=== PATIENT | female | born 1960 ===

== ENCOUNTER 2017-06-20 13:54 | Inpatient (IN) | payer OTHER ==
[2017-06-20] MEDS ORDERED: Sodium Chloride 0.9% 1,000 ML IV ONE ×3 (15:15→17:54)
--- NOTE | 2017-06-20 15:25 | RAD ---
PROCEDURE: CHEST RADIOGRAPH, 1 VIEW HISTORY: SOB COMPARISON: None FINDINGS: LUNGS: The lungs are well inflated and clear. PLEURA: No pneumothorax or pleural fluid seen. CARDIOVASCULAR: Normal. OSSEOUS STRUCTURES: No significant abnormalities. VISUALIZED UPPER ABDOMEN: Normal. OTHER FINDINGS: None. IMPRESSION: No active pulmonary disease.
[2017-06-20 16:30] LABS: VENOUS BLOOD GAS BASE EXCESS -13.9 mmol/L (0.0-2.0); VENOUS BLOOD GAS PCO2 28 mmHg (40-60); VENOUS BLOOD GAS PO2 25 mm/Hg (30-55); VENOUS BLOOD PH 7.24 (7.32-7.43)
[2017-06-20 16:40] LABS: BASO # 0.1 K/uL (0.0-0.2); BASO % 0.6 % (0.0-2.0); EOS % 0.1 % (0.0-4.0); LYMPH # 0.6 K/uL (1.0-4.3); MEAN CELL VOLUME 92.1 fL (81.0-99.0); MEAN CORPUSCULAR HEMOGLOBIN 30.5 pg (27.0-31.0); MEAN CORPUSCULAR HGB CONC 33.1 g/dL (33.0-37.0); MEAN PLATELET VOLUME 9.1 fL (7.2-11.7); MONO # 1.1 K/uL (0.0-0.8); MONO % 5.8 % (0.0-10.0); NEUT # 17.1 K/uL (1.8-7.0); NEUT % 90.5 % (50.0-75.0); PLATELET COUNT 413 K/uL (130-400); RED CELL DISTRIBUTION WIDTH 13.7 % (11.5-14.5); WHITE BLOOD COUNT 18.9 K/uL (4.8-10.8)
[2017-06-20] MEDS ORDERED: Sodium Chloride 0.9% 1,000 ML ONE (16:49)
[2017-06-20 17:02] LABS: ALB/GLOB RATIO 0.9 (1.0-2.1)
[2017-06-20 17:03] LABS: CALCIUM 9.7 mg/dl (8.6-10.4)
[2017-06-20 17:15] LABS: BANDS 7 % (0-2); LYMPHOCYTE 3 % (20-40); MONOCYTE 1 % (0-10); NEUTROPHIL 89 % (50-75); PLATELET ESTIMATE NORMAL (NORMAL); TOTAL CELLS COUNTED 100
[2017-06-20] MEDS ORDERED: Insulin Human Regular 100 UNIT in Sodium Chloride 0.9% 99 ML IV SCH ×2 (17:15→23:45)
--- NOTE | 2017-06-20 17:18 | C.PDOC ---
History Of Present Illness 57-year-old female, presents to the emergency department with complaints of vomiting for four days. Patient notes a history of diabetes and HTN. Patient's PMD, Dr. Angel instructed her to seek evaluation in the emergency department. She denies any diarrhea, fever, or other complaints at this time. Time Seen by Provider: 06/20/17 15:04 Chief Complaint (Nursing): Abdominal Pain History Per: Patient History/Exam Limitations: no limitations Onset/Duration Of Symptoms: Days (4 days beginning Thursday) Current Symptoms Are (Timing): Still Present Radiation Of Pain To:: None Associated Symptoms: Vomiting. denies: Fever, Chills, Diarrhea Recent travel outside of the [place]: No Additional History Per: Prior Records Abnormal Vaginal Bleeding: No Past Medical History Reviewed: Historical Data, Nursing Documentation, Vital Signs Vital Signs: Last Vital Signs Temp 98.5 F 06/20/17 18:24 Pulse 99 H 06/20/17 18:24 Resp 18 06/20/17 18:24 BP 153/86 H 06/20/17 18:24 Pulse Ox 98 06/20/17 18:59 - Medical History PMH: HTN Family History: States: Unknown Family Hx - Social History Hx Alcohol Use: No Hx Substance Use: No - Immunization History Hx Tetanus Toxoid Vaccination: No Hx Influenza Vaccination: No Hx Pneumococcal Vaccination: No Review Of Systems Constitutional: Negative for: Fever, Chills Cardiovascular: Negative for: Chest Pain Respiratory: Negative for: Shortness of Breath Gastrointestinal: Positive for: Vomiting. Negative for: Abdominal Pain, Diarrhea Physical Exam - Physical Exam Appears: Well, Non-toxic, In Acute Distress (patient ), Other (Patient has fruity odor to breath ) Skin: Warm, Dry, Pale Head: Atraumatic Eye(s): bilateral: Normal Inspection, PERRL, EOMI Oral Mucosa: Dry Neck: Supple Chest: Symmetrical, No Deformity Cardiovascular: Rhythm Regular Respiratory: Normal Breath Sounds, No Rhonchi, No Wheezing Gastrointestinal/Abdominal: Soft, No Tenderness, No Distention, No Guarding, No Rebound Extremity: Normal ROM, No Tenderness Neurological/Psych: Oriented x3, Normal Speech, Normal Cognition, Normal Cranial Nerves, Normal Motor, Normal Sensation Gait: Unable To Assess ED Course And Treatment - Laboratory Results Result Diagrams: 06/20/17 16:23 07/29/17 16:23 Lab Interpretation: Abnormal ECG: Interpreted By Me ECG Rhythm: Sinus Rhythm ECG Interpretation: Normal Rate From EC O2 Sat by Pulse Oximetry: 98 (room air ) Pulse Ox Interpretation: Normal - Radiology CXR: Interpreted by Me CXR Interpretation: Yes: No Acute Disease Progress Note: Patient's PMD Dr. Angel would like to admit to cost clerk. Chucking Machine Set Up Operator wants to admit to Dr. Lito Green. Dr. Lito Green agrees to plan and admission to his sevices. Blood work and EKG ordered. Patient is in DKA. Two liters of saline and zofran given. Insulin drip started in emergency department. Reassessment Condition: Improved - Physician Consult Information Time Consulting Physician Contacted: 17:30 Physician Contacted: Noam Green Outcome Of Conversation: admit to ICU Critical Care Time - Critical Care Note Total Time (in mins): 30 Documented critical care: time excludes all time spent performing seperately billable procedures. Medical Decision Making Medical Decision Making: Case discussed with Dr Sadler who request admission to Dr Kristan Vaca Case discussed with DR Vaca who agrees to ICU admission and request admission to Dr Chanel Green On re-evaluation lungs clear Disposition Discussed With Dr.: Noam Green Doctor Will See Patient In The: Hospital - Disposition Disposition: HOSPITALIZED Disposition Time: 18:00 Condition: GUARDED - POA Present On Arrival: None - Clinical Impression Clinical Impression: Vomiting, DKA (diabetic ketoacidoses) - Scribe Statement The provider has reviewed the documentation as recorded by the Scribe Jacqueline Phelps All medical record entries made by the Scribe were at my direction and personally dictated by me. I have reviewed the chart and agree that the record accurately reflects my personal performance of the history, physical exam, medical decision making, and the department course for this patient. I have also personally directed, reviewed, and agree with the discharge instructions and disposition. Decision To Admit - Pt Status Changed To: Hospital Disposition Of: [facility] Extended Stay Bed - InPatient: Physician Admission Certification:: DKA - . Bed Request Type: ICU Admitting Physician: Noam Green Patient Diagnosis: Vomiting, DKA (diabetic ketoacidoses)
--- NOTE | 2017-06-20 18:14 | CP.PCM.CON ---
History of Present Illness - History of Present Illness History of Present Illness: ICU evaluation for DKA 57-year-old female with hypertension and diabetes presented to emergency room with abdominal pain and vomiting for the past few days. Denies diarrhea, denies shortness of breath, denies fevers chills, denies chest pain. In the emergency room patient found to havE elevated glucose with high anion gap metabolic acidosis. Status post fluid resuscitation and started on insulin drip Review of Systems - Review of Systems All systems: reviewed and no additional remarkable complaints except (Vomiting and abdominal pain) Past Patient History - Past Social History Smoking Status: Never Smoked - CARDIAC Hx Hypertension: Yes - ENDOCRINE/METABOLIC Hx Endocrine Disorders: Yes Hx Diabetes Mellitus Type 2: Yes - PSYCHIATRIC Hx Substance Use: No - SURGICAL HISTORY Hx Surgeries: Yes Other/Comment: fibroid surgery Meds Allergies/Adverse Reactions: Allergies Allergy/AdvReac Type Severity Reaction Status Date / Time No Known Allergies Allergy Verified 06/20/17 14:51 - Medications Medications: Current Medications Enoxaparin Sodium (Lovenox) 40 mg SC DAILY [facility] Insulin Human Regular 100 unit (/ Sodium Chloride) 100 mls @ 5 mls/hr IV .Q20H [facility] PRN Reason: 5 UNIT/HR Sodium Chloride (Sodium Chloride 0.9%) 1,000 mls @ 250 mls/hr IV .Q4H ONE Stop: 06/20/17 21:53 Pantoprazole Sodium (Protonix Inj) 40 mg IVP DAILY [facility] Physical Exam - Head Exam Head Exam: ATRAUMATIC, NORMOCEPHALIC - Eye Exam Eye Exam: Normal appearance - ENT Exam ENT Exam: Mucous Membranes Dry - Neck Exam Neck exam: Positive for: Normal Inspection - Respiratory Exam Respiratory Exam: Clear to Auscultation Bilateral - Cardiovascular Exam Cardiovascular Exam: REGULAR RHYTHM - GI/Abdominal Exam GI & Abdominal Exam: Normal Bowel Sounds, Soft - Extremities Exam Extremities exam: Positive for: normal inspection Results - Vital Signs Recent Vital Signs: Last Vital Signs Temp 98.6 F 06/20/17 14:50 Pulse 102 H 06/20/17 14:50 Resp 16 06/20/17 14:50 BP 158/91 H 06/20/17 14:50 Pulse Ox 98 06/20/17 17:48 - Labs Result Diagrams: 06/20/17 16:23 06/20/17 16:23 Assessment & Plan (1) DKA (diabetic ketoacidoses) Status: Acute Comment: Fluid resuscitation and insulin drip. Monitor CLOSELY blood glucose and BMP. Monitor anion gap. Urine culture and sensitivity (2) Vomiting Status: Acute
[2017-06-20] MEDS ORDERED: Dextrose 5%/0.9% NS 1,000 ML IV ONE (19:54)
[2017-06-20 20:17] LABS: GFR AFRICAN-AMERICAN > 60; GFR NON-AFRICAN AMERICAN > 60
[2017-06-20 20:18] LABS: BLOOD UREA NITROGEN 31 mg/dL (7-17)
[2017-06-21 01:54] LABS: BLOOD UREA NITROGEN 24 mg/dL (7-17); GFR AFRICAN-AMERICAN > 60; GFR NON-AFRICAN AMERICAN > 60
[2017-06-21 01:55] LABS: CALCIUM 9.1 mg/dl (8.6-10.4); MAGNESIUM 1.7 mg/dL (1.6-2.3)
[2017-06-21] MEDS ORDERED: Dextrose 5%/0.9% NS 1,000 ML IV ONE (02:45)
[2017-06-21 07:05] LABS: BASO % 0.2 % (0.0-2.0); EOS % 0.1 % (0.0-4.0); HEMOGLOBIN 9.8 g/dL (11.0-16.0); LYMPH # 0.8 K/uL (1.0-4.3); LYMPH % 4.4 % (20.0-40.0); MEAN CORPUSCULAR HEMOGLOBIN 30.3 pg (27.0-31.0); MEAN CORPUSCULAR HGB CONC 33.8 g/dL (33.0-37.0); MEAN PLATELET VOLUME 8.8 fL (7.2-11.7); MONO # 1.3 K/uL (0.0-0.8); MONO % 7.1 % (0.0-10.0); NEUT # 15.8 K/uL (1.8-7.0); NEUT % 88.2 % (50.0-75.0); PLATELET COUNT 327 K/uL (130-400); RBC 3.24 Mil/uL (3.80-5.20); RED CELL DISTRIBUTION WIDTH 13.5 % (11.5-14.5); WHITE BLOOD COUNT 17.9 K/uL (4.8-10.8)
[2017-06-21 07:07] LABS: GFR AFRICAN-AMERICAN > 60; GFR NON-AFRICAN AMERICAN > 60; MEAN CELL VOLUME 89.7 fL (81.0-99.0)
[2017-06-21 07:08] LABS: BLOOD UREA NITROGEN 21 mg/dL (7-17); CALCIUM 8.9 mg/dl (8.6-10.4); MAGNESIUM 1.7 mg/dL (1.6-2.3)
[2017-06-21 07:16] LABS: SQUAMOUS EPITHIAL < 1 /hpf (0-5); URINE BACTERIA RARE (<OCC); URINE BILIRUBIN NEGATIVE (NEGATIVE); URINE BLOOD NEGATIVE (NEGATIVE); URINE CLARITY Hazy (Clear); URINE COLOR Yellow (YELLOW); URINE GLUCOSE (UA) 3+ mg/dL (Normal); URINE LEUKOCYTE ESTERASE 1+ Leu/uL (Negative); URINE NITRATE NEGATIVE (NEGATIVE); URINE PROTEIN 2+ mg/dL (NEGATIVE); URINE UROBILINOGEN NORMAL mg/dL (0.2-1.0)
[2017-06-21] MEDS: Potassium Chloride 20 mEq ER Tab PO ONE ×2 (08:06→08:44)
[2017-06-21 08:37] LABS: BANDS 12 % (0-2); LYMPHOCYTE 4 % (20-40); MONOCYTE 9 % (0-10); NEUTROPHIL 75 % (50-75); PLATELET ESTIMATE NORMAL (NORMAL); TOTAL CELLS COUNTED 100
[2017-06-21 08:38] LABS: ANISOCYTOSIS SLIGHT; HYPOCHROMIC SLIGHT; LARGE PLATELETS PRESENT; POLYCHROMIC SLIGHT
[2017-06-21] MEDS: Enoxaparin 40 mg Syringe SC SCH (09:07)
--- NOTE | 2017-06-21 10:57 | CP.CCUPN ---
CCU Subjective - Physician Review Events Since Last Encounter (Free Text): 06/21/17 10:54 Patient seen and examined in the intensive care unit. Case discussed with house staff in the morning. Still complaining of nausea and vomiting On insulin drip with normal anion gap Denies any other complaints CCU Objective - Vital Signs / Intake & Output Vital Signs (Last 4 hours): Vital Signs Temp Pulse Resp BP Pulse Ox 06/21/17 09:33 90 14 177/99 H 97 06/21/17 09:30 95 H 14 96 06/21/17 09:20 98 H 15 93 L 06/21/17 09:10 92 H 14 96 06/21/17 09:00 98 H 11 L 95 06/21/17 08:50 95 H 15 96 06/21/17 08:40 102 H 14 96 06/21/17 08:33 94 H 12 176/98 H 95 06/21/17 08:30 97 H 22 96 06/21/17 08:20 96 H 19 94 L 06/21/17 08:10 96 H 14 96 06/21/17 08:00 98.1 F 99 H 16 95 06/21/17 07:50 89 20 90 L 06/21/17 07:40 87 27 H 88 L 06/21/17 07:33 86 22 138/85 90 L 06/21/17 07:30 87 25 H 89 L 06/21/17 07:20 89 26 H 90 L 06/21/17 07:10 93 H 26 H 91 L 06/21/17 07:09 94 H 14 169/101 H 89 L 06/21/17 07:00 92 H 17 95 Intake and Output (Last 8hrs): Intake & Output 06/20/17 06/21/17 06/21/17 22:59 06:59 14:59 Intake Total 465 1225 476 Output Total 1150 1500 650 Balance -028 -729 -174 Weight 101 lb 6.602 oz Intake: Intake, IV Amount 465 1225 306 Right Antecubital 450 1200 300 Right Distal Port 15 25 6 Oral 0 0 170 Output: Urine 1150 1500 650 Urine, Voided 1150 1500 650 Stool 0 0 0 Other: Voiding Method Bedpan # Voids Urine, Voided 1 - Physical Exam Head: Positive for: Atraumatic, Normocephalic Pupils: Positive for: PERRL Extroacular Muscles: Positive for: EOMI Conjunctiva: Positive for: Normal Mouth: Positive for: Moist Mucous Membranes Neck: Positive for: Normal Range of Motion Respiratory/Chest: Positive for: Clear to Auscultation Cardiovascular: Positive for: Regular Rate and Rhythm Abdomen: Positive for: Normal Bowel Sounds Upper Extremity: Positive for: Normal Inspection Lower Extremity: Positive for: Normal Inspection Skin: Positive for: Warm Psychiatric: Positive for: Alert, Oriented x 3 - Medications Active Medications: Active Medications Generic Name Dose Route Start Last Admin Trade Name Freq PRN Reason Stop Dose Admin Enoxaparin Sodium 40 mg 06/21/17 10:00 06/21/17 09:07 Lovenox SC 40 mg DAILY JUAN MANUEL Administration Ciprofloxacin 400 mg in 200 mls @ 133 mls/hr 06/21/17 10:00 Cipro 400mg/200ml Dsw IVPB Q12H JUAN MANUEL Insulin Human Regular 0 unit 06/21/17 11:30 Novolin R SC ACHS JUAN MANUEL Protocol Ondansetron HCl 4 mg 06/20/17 21:34 06/21/17 08:00 Zofran Inj IVP 4 mg Q4H PRN Administration Nausea/Vomiting Pantoprazole Sodium 40 mg 06/20/17 18:00 06/21/17 09:06 Protonix Inj IVP 40 mg DAILY JUAN MANUEL Administration - Patient Studies Lab Studies: Lab Studies 06/21/17 06/21/17 06/21/17 Range/Units 07:51 07:09 06:48 WBC 17.9 H (4.8-10.8) K/uL RBC 3.24 L (3.80-5.20) Mil/uL Hgb 9.8 L (11.0-16.0) g/dL Hct 29.0 L (34.0-47.0) % MCV 89.7 D (81.0-99.0) fL MCH 30.3 (27.0-31.0) pg MCHC 33.8 (33.0-37.0) g/dL RDW 13.5 (11.5-14.5) % Plt Count 327 (130-400) K/uL MPV 8.8 (7.2-11.7) fL Neut % (Auto) 88.2 H (50.0-75.0) % Lymph % (Auto) 4.4 L (20.0-40.0) % [place] % (Auto) 7.1 (0.0-10.0) % Eos % (Auto) 0.1 (0.0-4.0) % Baso % (Auto) 0.2 (0.0-2.0) % Neut # 15.8 H (1.8-7.0) K/uL Lymph # 0.8 L (1.0-4.3) K/uL [place] # 1.3 H (0.0-0.8) K/uL Eos # 0.0 (0.0-0.7) K/uL Baso # 0.0 (0.0-0.2) K/uL Neutrophils % (Manual) 75 (50-75) % Band Neutrophils % 12 H* (0-2) % Lymphocytes % (Manual) 4 L (20-40) % Monocytes % (Manual) 9 (0-10) % Platelet Estimate Normal (NORMAL) Large Platelets Present Polychromasia Slight Hypochromasia (manual) Slight Anisocytosis (manual) Slight Sodium (132-148) mmol/L Potassium (3.6-5.2) mmol/L Chloride (98-107) mmol/L Carbon Dioxide (22-30) mmol/L Anion Gap (10-20) BUN (7-17) mg/dL Creatinine (0.7-1.2) MG/DL Est GFR ( Amer) Est GFR (Non-Af Amer) POC Glucose (mg/dL) 211 H 201 H (65-110) mg/dL Random Glucose (65-105) mg/dL Calcium (8.6-10.4) mg/dl Phosphorus (2.5-4.5) mg/dL Magnesium (1.6-2.3) mg/dL Urine Color (YELLOW) Urine Clarity (Clear) Urine pH (5.0-8.0) Ur Specific [place] (1.003-1.030) Urine Protein (NEGATIVE) mg/dL Urine Glucose (UA) (Normal) mg/dL Urine Ketones (NEGATIVE) mg/dL Urine Blood (NEGATIVE) Urine Nitrate (NEGATIVE) Urine Bilirubin (NEGATIVE) Urine Urobilinogen (0.2-1.0) mg/dL Ur Leukocyte Esterase (Negative) Asaf/uL Urine WBC (Auto) (0-5) /hpf Urine RBC (Auto) (0-3) /hpf Ur Squamous Epith Cells (0-5) /hpf Urine Bacteria (<OCC) 06/21/17 06/21/17 06/21/17 Range/Units 06:48 06:48 06:14 WBC (4.8-10.8) K/uL RBC (3.80-5.20) Mil/uL Hgb (11.0-16.0) g/dL Hct (34.0-47.0) % MCV (81.0-99.0) fL MCH (27.0-31.0) pg MCHC (33.0-37.0) g/dL RDW (11.5-14.5) % Plt Count (130-400) K/uL MPV (7.2-11.7) fL Neut % (Auto) (50.0-75.0) % Lymph % (Auto) (20.0-40.0) % [place] % (Auto) (0.0-10.0) % Eos % (Auto) (0.0-4.0) % Baso % (Auto) (0.0-2.0) % Neut # (1.8-7.0) K/uL Lymph # (1.0-4.3) K/uL [place] # (0.0-0.8) K/uL Eos # (0.0-0.7) K/uL Baso # (0.0-0.2) K/uL Neutrophils % (Manual) (50-75) % Band Neutrophils % (0-2) % Lymphocytes % (Manual) (20-40) % Monocytes % (Manual) (0-10) % Platelet Estimate (NORMAL) Large Platelets Polychromasia Hypochromasia (manual) Anisocytosis (manual) Sodium 144 (132-148) mmol/L Potassium 3.0 L (3.6-5.2) mmol/L Chloride 108 H (98-107) mmol/L Carbon Dioxide 23 (22-30) mmol/L Anion Gap 16 (10-20) BUN 21 H (7-17) mg/dL Creatinine 0.9 (0.7-1.2) MG/DL Est GFR ( Amer) > 60 Est GFR (Non-Af Amer) > 60 POC Glucose (mg/dL) 217 H (65-110) mg/dL Random Glucose 229 H (65-105) mg/dL Calcium 8.9 (8.6-10.4) mg/dl Phosphorus 1.8 L (2.5-4.5) mg/dL Magnesium 1.7 (1.6-2.3) mg/dL Urine Color Yellow (YELLOW) Urine Clarity Hazy (Clear) Urine pH 5.0 (5.0-8.0) Ur Specific [place] 1.010 (1.003-1.030) Urine Protein 2+ H (NEGATIVE) mg/dL Urine Glucose (UA) 3+ H (Normal) mg/dL Urine Ketones Trace (NEGATIVE) mg/dL Urine Blood Negative (NEGATIVE) Urine Nitrate Negative (NEGATIVE) Urine Bilirubin Negative (NEGATIVE) Urine Urobilinogen Normal (0.2-1.0) mg/dL Ur Leukocyte Esterase 1+ H (Negative) Asaf/uL Urine WBC (Auto) 43 H (0-5) /hpf Urine RBC (Auto) 1 (0-3) /hpf Ur Squamous Epith Cells < 1 (0-5) /hpf Urine Bacteria Rare (<OCC) 06/21/17 06/21/17 06/21/17 Range/Units 05:14 04:17 03:15 WBC (4.8-10.8) K/uL RBC (3.80-5.20) Mil/uL Hgb (11.0-16.0) g/dL Hct (34.0-47.0) % MCV (81.0-99.0) fL MCH (27.0-31.0) pg MCHC (33.0-37.0) g/dL RDW (11.5-14.5) % Plt Count (130-400) K/uL MPV (7.2-11.7) fL Neut % (Auto) (50.0-75.0) % Lymph % (Auto) (20.0-40.0) % [place] % (Auto) (0.0-10.0) % Eos % (Auto) (0.0-4.0) % Baso % (Auto) (0.0-2.0) % Neut # (1.8-7.0) K/uL Lymph # (1.0-4.3) K/uL [place] # (0.0-0.8) K/uL Eos # (0.0-0.7) K/uL Baso # (0.0-0.2) K/uL Neutrophils % (Manual) (50-75) % Band Neutrophils % (0-2) % Lymphocytes % (Manual) (20-40) % Monocytes % (Manual) (0-10) % Platelet Estimate (NORMAL) Large Platelets Polychromasia Hypochromasia (manual) Anisocytosis (manual) Sodium (132-148) mmol/L Potassium (3.6-5.2) mmol/L Chloride (98-107) mmol/L Carbon Dioxide (22-30) mmol/L Anion Gap (10-20) BUN (7-17) mg/dL Creatinine (0.7-1.2) MG/DL Est GFR ( Amer) Est GFR (Non-Af Amer) POC Glucose (mg/dL) 258 H 248 H 221 H (65-110) mg/dL Random Glucose (65-105) mg/dL Calcium (8.6-10.4) mg/dl Phosphorus (2.5-4.5) mg/dL Magnesium (1.6-2.3) mg/dL Urine Color (YELLOW) Urine Clarity (Clear) Urine pH (5.0-8.0) Ur Specific [place] (1.003-1.030) Urine Protein (NEGATIVE) mg/dL Urine Glucose (UA) (Normal) mg/dL Urine Ketones (NEGATIVE) mg/dL Urine Blood (NEGATIVE) Urine Nitrate (NEGATIVE) Urine Bilirubin (NEGATIVE) Urine Urobilinogen (0.2-1.0) mg/dL Ur Leukocyte Esterase (Negative) Asaf/uL Urine WBC (Auto) (0-5) /hpf Urine RBC (Auto) (0-3) /hpf Ur Squamous Epith Cells (0-5) /hpf Urine Bacteria (<OCC) 06/21/17 06/21/17 06/21/17 Range/Units 01:59 01:30 01:04 WBC (4.8-10.8) K/uL RBC (3.80-5.20) Mil/uL Hgb (11.0-16.0) g/dL Hct (34.0-47.0) % MCV (81.0-99.0) fL MCH (27.0-31.0) pg MCHC (33.0-37.0) g/dL RDW (11.5-14.5) % Plt Count (130-400) K/uL MPV (7.2-11.7) fL Neut % (Auto) (50.0-75.0) % Lymph % (Auto) (20.0-40.0) % [place] % (Auto) (0.0-10.0) % Eos % (Auto) (0.0-4.0) % Baso % (Auto) (0.0-2.0) % Neut # (1.8-7.0) K/uL Lymph # (1.0-4.3) K/uL [place] # (0.0-0.8) K/uL Eos # (0.0-0.7) K/uL Baso # (0.0-0.2) K/uL Neutrophils % (Manual) (50-75) % Band Neutrophils % (0-2) % Lymphocytes % (Manual) (20-40) % Monocytes % (Manual) (0-10) % Platelet Estimate (NORMAL) Large Platelets Polychromasia Hypochromasia (manual) Anisocytosis (manual) Sodium 145 (132-148) mmol/L Potassium 3.4 L (3.6-5.2) mmol/L Chloride 108 H (98-107) mmol/L Carbon Dioxide 22 (22-30) mmol/L Anion Gap 18 (10-20) BUN 24 H (7-17) mg/dL Creatinine 0.9 (0.7-1.2) MG/DL Est GFR ( Amer) > 60 Est GFR (Non-Af Amer) > 60 POC Glucose (mg/dL) 198 H 208 H (65-110) mg/dL Random Glucose 205 H (65-105) mg/dL Calcium 9.1 (8.6-10.4) mg/dl Phosphorus 1.4 L (2.5-4.5) mg/dL Magnesium 1.7 (1.6-2.3) mg/dL Urine Color (YELLOW) Urine Clarity (Clear) Urine pH (5.0-8.0) Ur Specific [place] (1.003-1.030) Urine Protein (NEGATIVE) mg/dL Urine Glucose (UA) (Normal) mg/dL Urine Ketones (NEGATIVE) mg/dL Urine Blood (NEGATIVE) Urine Nitrate (NEGATIVE) Urine Bilirubin (NEGATIVE) Urine Urobilinogen (0.2-1.0) mg/dL Ur Leukocyte Esterase (Negative) Asaf/uL Urine WBC (Auto) (0-5) /hpf Urine RBC (Auto) (0-3) /hpf Ur Squamous Epith Cells (0-5) /hpf Urine Bacteria (<OCC) 06/21/17 06/20/17 06/20/17 Range/Units 00:08 23:27 22:16 WBC (4.8-10.8) K/uL RBC (3.80-5.20) Mil/uL Hgb (11.0-16.0) g/dL Hct (34.0-47.0) % MCV (81.0-99.0) fL MCH (27.0-31.0) pg MCHC (33.0-37.0) g/dL RDW (11.5-14.5) % Plt Count (130-400) K/uL MPV (7.2-11.7) fL Neut % (Auto) (50.0-75.0) % Lymph % (Auto) (20.0-40.0) % [place] % (Auto) (0.0-10.0) % Eos % (Auto) (0.0-4.0) % Baso % (Auto) (0.0-2.0) % Neut # (1.8-7.0) K/uL Lymph # (1.0-4.3) K/uL [place] # (0.0-0.8) K/uL Eos # (0.0-0.7) K/uL Baso # (0.0-0.2) K/uL Neutrophils % (Manual) (50-75) % Band Neutrophils % (0-2) % Lymphocytes % (Manual) (20-40) % Monocytes % (Manual) (0-10) % Platelet Estimate (NORMAL) Large Platelets Polychromasia Hypochromasia (manual) Anisocytosis (manual) Sodium (132-148) mmol/L Potassium (3.6-5.2) mmol/L Chloride (98-107) mmol/L Carbon Dioxide (22-30) mmol/L Anion Gap (10-20) BUN (7-17) mg/dL Creatinine (0.7-1.2) MG/DL Est GFR ( Amer) Est GFR (Non-Af Amer) POC Glucose (mg/dL) 198 H 215 H 186 H (65-110) mg/dL Random Glucose (65-105) mg/dL Calcium (8.6-10.4) mg/dl Phosphorus (2.5-4.5) mg/dL Magnesium (1.6-2.3) mg/dL Urine Color (YELLOW) Urine Clarity (Clear) Urine pH (5.0-8.0) Ur Specific [place] (1.003-1.030) Urine Protein (NEGATIVE) mg/dL Urine Glucose (UA) (Normal) mg/dL Urine Ketones (NEGATIVE) mg/dL Urine Blood (NEGATIVE) Urine Nitrate (NEGATIVE) Urine Bilirubin (NEGATIVE) Urine Urobilinogen (0.2-1.0) mg/dL Ur Leukocyte Esterase (Negative) Asaf/uL Urine WBC (Auto) (0-5) /hpf Urine RBC (Auto) (0-3) /hpf Ur Squamous Epith Cells (0-5) /hpf Urine Bacteria (<OCC) 06/20/17 06/20/17 06/20/17 Range/Units 20:59 20:04 19:52 WBC (4.8-10.8) K/uL RBC (3.80-5.20) Mil/uL Hgb (11.0-16.0) g/dL Hct (34.0-47.0) % MCV (81.0-99.0) fL MCH (27.0-31.0) pg MCHC (33.0-37.0) g/dL RDW (11.5-14.5) % Plt Count (130-400) K/uL MPV (7.2-11.7) fL Neut % (Auto) (50.0-75.0) % Lymph % (Auto) (20.0-40.0) % [place] % (Auto) (0.0-10.0) % Eos % (Auto) (0.0-4.0) % Baso % (Auto) (0.0-2.0) % Neut # (1.8-7.0) K/uL Lymph # (1.0-4.3) K/uL [place] # (0.0-0.8) K/uL Eos # (0.0-0.7) K/uL Baso # (0.0-0.2) K/uL Neutrophils % (Manual) (50-75) % Band Neutrophils % (0-2) % Lymphocytes % (Manual) (20-40) % Monocytes % (Manual) (0-10) % Platelet Estimate (NORMAL) Large Platelets Polychromasia Hypochromasia (manual) Anisocytosis (manual) Sodium 141 (132-148) mmol/L Potassium 4.3 (3.6-5.2) mmol/L Chloride 104 (98-107) mmol/L Carbon Dioxide 13 L (22-30) mmol/L Anion Gap 28 H (10-20) BUN 31 H (7-17) mg/dL Creatinine 0.9 (0.7-1.2) MG/DL Est GFR ( Amer) > 60 Est GFR (Non-Af Amer) > 60 POC Glucose (mg/dL) 220 H 274 H (65-110) mg/dL Random Glucose 299 H (65-105) mg/dL Calcium 9.0 (8.6-10.4) mg/dl Phosphorus (2.5-4.5) mg/dL Magnesium (1.6-2.3) mg/dL Urine Color (YELLOW) Urine Clarity (Clear) Urine pH (5.0-8.0) Ur Specific [place] (1.003-1.030) Urine Protein (NEGATIVE) mg/dL Urine Glucose (UA) (Normal) mg/dL Urine Ketones (NEGATIVE) mg/dL Urine Blood (NEGATIVE) Urine Nitrate (NEGATIVE) Urine Bilirubin (NEGATIVE) Urine Urobilinogen (0.2-1.0) mg/dL Ur Leukocyte Esterase (Negative) Asaf/uL Urine WBC (Auto) (0-5) /hpf Urine RBC (Auto) (0-3) /hpf Ur Squamous Epith Cells (0-5) /hpf Urine Bacteria (<OCC) 06/20/17 Range/Units 19:06 WBC (4.8-10.8) K/uL RBC (3.80-5.20) Mil/uL Hgb (11.0-16.0) g/dL Hct (34.0-47.0) % MCV (81.0-99.0) fL MCH (27.0-31.0) pg MCHC (33.0-37.0) g/dL RDW (11.5-14.5) % Plt Count (130-400) K/uL MPV (7.2-11.7) fL Neut % (Auto) (50.0-75.0) % Lymph % (Auto) (20.0-40.0) % [place] % (Auto) (0.0-10.0) % Eos % (Auto) (0.0-4.0) % Baso % (Auto) (0.0-2.0) % Neut # (1.8-7.0) K/uL Lymph # (1.0-4.3) K/uL [place] # (0.0-0.8) K/uL Eos # (0.0-0.7) K/uL Baso # (0.0-0.2) K/uL Neutrophils % (Manual) (50-75) % Band Neutrophils % (0-2) % Lymphocytes % (Manual) (20-40) % Monocytes % (Manual) (0-10) % Platelet Estimate (NORMAL) Large Platelets Polychromasia Hypochromasia (manual) Anisocytosis (manual) Sodium (132-148) mmol/L Potassium (3.6-5.2) mmol/L Chloride (98-107) mmol/L Carbon Dioxide (22-30) mmol/L Anion Gap (10-20) BUN (7-17) mg/dL Creatinine (0.7-1.2) MG/DL Est GFR ( Amer) Est GFR (Non-Af Amer) POC Glucose (mg/dL) 253 H (65-110) mg/dL Random Glucose (65-105) mg/dL Calcium (8.6-10.4) mg/dl Phosphorus (2.5-4.5) mg/dL Magnesium (1.6-2.3) mg/dL Urine Color (YELLOW) Urine Clarity (Clear) Urine pH (5.0-8.0) Ur Specific [place] (1.003-1.030) Urine Protein (NEGATIVE) mg/dL Urine Glucose (UA) (Normal) mg/dL Urine Ketones (NEGATIVE) mg/dL Urine Blood (NEGATIVE) Urine Nitrate (NEGATIVE) Urine Bilirubin (NEGATIVE) Urine Urobilinogen (0.2-1.0) mg/dL Ur Leukocyte Esterase (Negative) Asaf/uL Urine WBC (Auto) (0-5) /hpf Urine RBC (Auto) (0-3) /hpf Ur Squamous Epith Cells (0-5) /hpf Urine Bacteria (<OCC) Laboratory Results - last 24 hr 06/20/17 06/20/17 06/20/17 19:06 19:52 20:04 WBC RBC Hgb Hct MCV MCH MCHC RDW Plt Count MPV Neut % (Auto) Lymph % (Auto) [place] % (Auto) Eos % (Auto) Baso % (Auto) Neut # Lymph # [place] # Eos # Baso # Neutrophils % (Manual) Band Neutrophils % Lymphocytes % (Manual) Monocytes % (Manual) Platelet Estimate Large Platelets Polychromasia Hypochromasia (manual) Anisocytosis (manual) Sodium 141 Potassium 4.3 Chloride 104 Carbon Dioxide 13 L Anion Gap 28 H BUN 31 H Creatinine 0.9 Est GFR ( Amer) > 60 Est GFR (Non-Af Amer) > 60 POC Glucose (mg/dL) 253 H 274 H Random Glucose 299 H Calcium 9.0 Phosphorus Magnesium Urine Color Urine Clarity Urine pH Ur Specific [place] Urine Protein Urine Glucose (UA) Urine Ketones Urine Blood Urine Nitrate Urine Bilirubin Urine Urobilinogen Ur Leukocyte Esterase Urine WBC (Auto) Urine RBC (Auto) Ur Squamous Epith Cells Urine Bacteria 06/20/17 06/20/17 06/20/17 20:59 22:16 23:27 WBC RBC Hgb Hct MCV MCH MCHC RDW Plt Count MPV Neut % (Auto) Lymph % (Auto) [place] % (Auto) Eos % (Auto) Baso % (Auto) Neut # Lymph # [place] # Eos # Baso # Neutrophils % (Manual) Band Neutrophils % Lymphocytes % (Manual) Monocytes % (Manual) Platelet Estimate Large Platelets Polychromasia Hypochromasia (manual) Anisocytosis (manual) Sodium Potassium Chloride Carbon Dioxide Anion Gap BUN Creatinine Est GFR ( Amer) Est GFR (Non-Af Amer) POC Glucose (mg/dL) 220 H 186 H 215 H Random Glucose Calcium Phosphorus Magnesium Urine Color Urine Clarity Urine pH Ur Specific [place] Urine Protein Urine Glucose (UA) Urine Ketones Urine Blood Urine Nitrate Urine Bilirubin Urine Urobilinogen Ur Leukocyte Esterase Urine WBC (Auto) Urine RBC (Auto) Ur Squamous Epith Cells Urine Bacteria 06/21/17 06/21/17 06/21/17 00:08 01:04 01:30 WBC RBC Hgb Hct MCV MCH MCHC RDW Plt Count MPV Neut % (Auto) Lymph % (Auto) [place] % (Auto) Eos % (Auto) Baso % (Auto) Neut # Lymph # [place] # Eos # Baso # Neutrophils % (Manual) Band Neutrophils % Lymphocytes % (Manual) Monocytes % (Manual) Platelet Estimate Large Platelets Polychromasia Hypochromasia (manual) Anisocytosis (manual) Sodium 145 Potassium 3.4 L Chloride 108 H Carbon Dioxide 22 Anion Gap 18 BUN 24 H Creatinine 0.9 Est GFR ( Amer) > 60 Est GFR (Non-Af Amer) > 60 POC Glucose (mg/dL) 198 H 208 H Random Glucose 205 H Calcium 9.1 Phosphorus 1.4 L Magnesium 1.7 Urine Color Urine Clarity Urine pH Ur Specific [place] Urine Protein Urine Glucose (UA) Urine Ketones Urine Blood Urine Nitrate Urine Bilirubin Urine Urobilinogen Ur Leukocyte Esterase Urine WBC (Auto) Urine RBC (Auto) Ur Squamous Epith Cells Urine Bacteria 06/21/17 06/21/17 06/21/17 01:59 03:15 04:17 WBC RBC Hgb Hct MCV MCH MCHC RDW Plt Count MPV Neut % (Auto) Lymph % (Auto) [place] % (Auto) Eos % (Auto) Baso % (Auto) Neut # Lymph # [place] # Eos # Baso # Neutrophils % (Manual) Band Neutrophils % Lymphocytes % (Manual) Monocytes % (Manual) Platelet Estimate Large Platelets Polychromasia Hypochromasia (manual) Anisocytosis (manual) Sodium Potassium Chloride Carbon Dioxide Anion Gap BUN Creatinine Est GFR ( Amer) Est GFR (Non-Af Amer) POC Glucose (mg/dL) 198 H 221 H 248 H Random Glucose Calcium Phosphorus Magnesium Urine Color Urine Clarity Urine pH Ur Specific [place] Urine Protein Urine Glucose (UA) Urine Ketones Urine Blood Urine Nitrate Urine Bilirubin Urine Urobilinogen Ur Leukocyte Esterase Urine WBC (Auto) Urine RBC (Auto) Ur Squamous Epith Cells Urine Bacteria 06/21/17 06/21/17 06/21/17 05:14 06:14 06:48 WBC RBC Hgb Hct MCV MCH MCHC RDW Plt Count MPV Neut % (Auto) Lymph % (Auto) [place] % (Auto) Eos % (Auto) Baso % (Auto) Neut # Lymph # [place] # Eos # Baso # Neutrophils % (Manual) Band Neutrophils % Lymphocytes % (Manual) Monocytes % (Manual) Platelet Estimate Large Platelets Polychromasia Hypochromasia (manual) Anisocytosis (manual) Sodium Potassium Chloride Carbon Dioxide Anion Gap BUN Creatinine Est GFR ( Amer) Est GFR (Non-Af Amer) POC Glucose (mg/dL) 258 H 217 H Random Glucose Calcium Phosphorus Magnesium Urine Color Yellow Urine Clarity Hazy Urine pH 5.0 Ur Specific [place] 1.010 Urine Protein 2+ H Urine Glucose (UA) 3+ H Urine Ketones Trace Urine Blood Negative Urine Nitrate Negative Urine Bilirubin Negative Urine Urobilinogen Normal Ur Leukocyte Esterase 1+ H Urine WBC (Auto) 43 H Urine RBC (Auto) 1 Ur Squamous Epith Cells < 1 Urine Bacteria Rare 06/21/17 06/21/17 06/21/17 06:48 06:48 07:09 WBC 17.9 H RBC 3.24 L Hgb 9.8 L Hct 29.0 L MCV 89.7 D MCH 30.3 MCHC 33.8 RDW 13.5 Plt Count 327 MPV 8.8 Neut % (Auto) 88.2 H Lymph % (Auto) 4.4 L [place] % (Auto) 7.1 Eos % (Auto) 0.1 Baso % (Auto) 0.2 Neut # 15.8 H Lymph # 0.8 L [place] # 1.3 H Eos # 0.0 Baso # 0.0 Neutrophils % (Manual) 75 Band Neutrophils % 12 H* Lymphocytes % (Manual) 4 L Monocytes % (Manual) 9 Platelet Estimate Normal Large Platelets Present Polychromasia Slight Hypochromasia (manual) Slight Anisocytosis (manual) Slight Sodium 144 Potassium 3.0 L Chloride 108 H Carbon Dioxide 23 Anion Gap 16 BUN 21 H Creatinine 0.9 Est GFR ( Amer) > 60 Est GFR (Non-Af Amer) > 60 POC Glucose (mg/dL) 201 H Random Glucose 229 H Calcium 8.9 Phosphorus 1.8 L Magnesium 1.7 Urine Color Urine Clarity Urine pH Ur Specific [place] Urine Protein Urine Glucose (UA) Urine Ketones Urine Blood Urine Nitrate Urine Bilirubin Urine Urobilinogen Ur Leukocyte Esterase Urine WBC (Auto) Urine RBC (Auto) Ur Squamous Epith Cells Urine Bacteria 06/21/17 07:51 WBC RBC Hgb Hct MCV MCH MCHC RDW Plt Count MPV Neut % (Auto) Lymph % (Auto) [place] % (Auto) Eos % (Auto) Baso % (Auto) Neut # Lymph # [place] # Eos # Baso # Neutrophils % (Manual) Band Neutrophils % Lymphocytes % (Manual) Monocytes % (Manual) Platelet Estimate Large Platelets Polychromasia Hypochromasia (manual) Anisocytosis (manual) Sodium Potassium Chloride Carbon Dioxide Anion Gap BUN Creatinine Est GFR ( Amer) Est GFR (Non-Af Amer) POC Glucose (mg/dL) 211 H Random Glucose Calcium Phosphorus Magnesium Urine Color Urine Clarity Urine pH Ur Specific [place] Urine Protein Urine Glucose (UA) Urine Ketones Urine Blood Urine Nitrate Urine Bilirubin Urine Urobilinogen Ur Leukocyte Esterase Urine WBC (Auto) Urine RBC (Auto) Ur Squamous Epith Cells Urine Bacteria Fingerstick Blood Sugar Results: 198 Critical Care Progress Note - Nutrition Nutrition: Nutrition Category Date Time Status Consistent Carbohydrate [DIET] Diets 06/21/17 Breakfast Active Assessment/Plan (1) DKA (diabetic ketoacidoses) Current Visit: Yes Status: Acute Comment: DKA resolved Discontinue insulin drip Replace potassium Start feeding Long-acting insulin Start Cipro for elevated white count and bands (2) Vomiting Current Visit: Yes Status: Acute
[2017-06-21] MEDS: (Novolin R) Insulin Human Regular 100 units/ml vial SC SCH ×3 (11:19→22:27)
[2017-06-21] MEDS: Ciprofloxacin 400mg/200ml D5W 400 MG/200 ML BAG IVPB SCH ×2 (11:20→22:26)
--- NOTE | 2017-06-21 12:41 | CP.PCM.HP ---
Past Patient History - Past Social History Smoking Status: Never Smoked - CARDIAC Hx Hypertension: Yes - PULMONARY Hx Respiratory Disorders: No - NEUROLOGICAL Hx Neurological Disorder: No - HEENT Hx HEENT Problems: No - RENAL Hx Chronic Kidney Disease: No - ENDOCRINE/METABOLIC Hx Endocrine Disorders: Yes Hx Diabetes Mellitus Type 2: Yes - HEMATOLOGICAL/ONCOLOGICAL Hx Blood Disorders: No - INTEGUMENTARY Hx Dermatological Problems: No - MUSCULOSKELETAL/RHEUMATOLOGICAL Hx Musculoskeletal Disorders: No Hx Falls: No - GASTROINTESTINAL Hx Gastrointestinal Disorders: No - GENITOURINARY/GYNECOLOGICAL Hx Genitourinary Disorders: No - PSYCHIATRIC Hx Substance Use: No - SURGICAL HISTORY Hx Surgeries: Yes Other/Comment: fibroid surgery - ANESTHESIA Hx Anesthesia: Yes Hx Anesthesia Reactions: No Hx Malignant Hyperthermia: No Meds Allergies/Adverse Reactions: Allergies Allergy/AdvReac Type Severity Reaction Status Date / Time No Known Allergies Allergy Verified 06/20/17 14:51 Physical Exam - Constitutional Appears: Well - Head Exam Head Exam: ATRAUMATIC, NORMAL INSPECTION, NORMOCEPHALIC - Eye Exam Eye Exam: EOMI, Normal appearance, PERRL Pupil Exam: NORMAL ACCOMODATION, PERRL - ENT Exam ENT Exam: Mucous Membranes Moist, Normal Exam - Neck Exam Neck exam: Positive for: Normal Inspection - Respiratory Exam Respiratory Exam: Decreased Breath Sounds - Cardiovascular Exam Cardiovascular Exam: REGULAR RHYTHM, +S1, +S2 - GI/Abdominal Exam GI & Abdominal Exam: Diminished Bowel Sounds, Soft - Rectal Exam Rectal Exam: Deferred Results - Vital Signs Recent Vital Signs: Last Vital Signs Temp 98.1 F 06/21/17 08:00 Pulse 88 06/21/17 11:40 Resp 23 06/21/17 11:40 BP 176/94 H 06/21/17 11:33 Pulse Ox 94 L 06/21/17 11:40 - Labs Result Diagrams: 06/21/17 06:48 06/21/17 06:48 Labs: Laboratory Results - last 24 hr 06/20/17 06/20/17 06/20/17 19:06 19:52 20:04 WBC RBC Hgb Hct MCV MCH MCHC RDW Plt Count MPV Neut % (Auto) Lymph % (Auto) [place] % (Auto) Eos % (Auto) Baso % (Auto) Neut # Lymph # [place] # Eos # Baso # Neutrophils % (Manual) Band Neutrophils % Lymphocytes % (Manual) Monocytes % (Manual) Platelet Estimate Large Platelets Polychromasia Hypochromasia (manual) Anisocytosis (manual) Sodium 141 Potassium 4.3 Chloride 104 Carbon Dioxide 13 L Anion Gap 28 H BUN 31 H Creatinine 0.9 Est GFR ( Amer) > 60 Est GFR (Non-Af Amer) > 60 POC Glucose (mg/dL) 253 H 274 H Random Glucose 299 H Calcium 9.0 Phosphorus Magnesium Urine Color Urine Clarity Urine pH Ur Specific [place] Urine Protein Urine Glucose (UA) Urine Ketones Urine Blood Urine Nitrate Urine Bilirubin Urine Urobilinogen Ur Leukocyte Esterase Urine WBC (Auto) Urine RBC (Auto) Ur Squamous Epith Cells Urine Bacteria 06/20/17 06/20/17 06/20/17 20:59 22:16 23:27 WBC RBC Hgb Hct MCV MCH MCHC RDW Plt Count MPV Neut % (Auto) Lymph % (Auto) [place] % (Auto) Eos % (Auto) Baso % (Auto) Neut # Lymph # [place] # Eos # Baso # Neutrophils % (Manual) Band Neutrophils % Lymphocytes % (Manual) Monocytes % (Manual) Platelet Estimate Large Platelets Polychromasia Hypochromasia (manual) Anisocytosis (manual) Sodium Potassium Chloride Carbon Dioxide Anion Gap BUN Creatinine Est GFR ( Amer) Est GFR (Non-Af Amer) POC Glucose (mg/dL) 220 H 186 H 215 H Random Glucose Calcium Phosphorus Magnesium Urine Color Urine Clarity Urine pH Ur Specific [place] Urine Protein Urine Glucose (UA) Urine Ketones Urine Blood Urine Nitrate Urine Bilirubin Urine Urobilinogen Ur Leukocyte Esterase Urine WBC (Auto) Urine RBC (Auto) Ur Squamous Epith Cells Urine Bacteria 06/21/17 06/21/17 06/21/17 00:08 01:04 01:30 WBC RBC Hgb Hct MCV MCH MCHC RDW Plt Count MPV Neut % (Auto) Lymph % (Auto) [place] % (Auto) Eos % (Auto) Baso % (Auto) Neut # Lymph # [place] # Eos # Baso # Neutrophils % (Manual) Band Neutrophils % Lymphocytes % (Manual) Monocytes % (Manual) Platelet Estimate Large Platelets Polychromasia Hypochromasia (manual) Anisocytosis (manual) Sodium 145 Potassium 3.4 L Chloride 108 H Carbon Dioxide 22 Anion Gap 18 BUN 24 H Creatinine 0.9 Est GFR ( Amer) > 60 Est GFR (Non-Af Amer) > 60 POC Glucose (mg/dL) 198 H 208 H Random Glucose 205 H Calcium 9.1 Phosphorus 1.4 L Magnesium 1.7 Urine Color Urine Clarity Urine pH Ur Specific [place] Urine Protein Urine Glucose (UA) Urine Ketones Urine Blood Urine Nitrate Urine Bilirubin Urine Urobilinogen Ur Leukocyte Esterase Urine WBC (Auto) Urine RBC (Auto) Ur Squamous Epith Cells Urine Bacteria 06/21/17 06/21/17 06/21/17 01:59 03:15 04:17 WBC RBC Hgb Hct MCV MCH MCHC RDW Plt Count MPV Neut % (Auto) Lymph % (Auto) [place] % (Auto) Eos % (Auto) Baso % (Auto) Neut # Lymph # [place] # Eos # Baso # Neutrophils % (Manual) Band Neutrophils % Lymphocytes % (Manual) Monocytes % (Manual) Platelet Estimate Large Platelets Polychromasia Hypochromasia (manual) Anisocytosis (manual) Sodium Potassium Chloride Carbon Dioxide Anion Gap BUN Creatinine Est GFR ( Amer) Est GFR (Non-Af Amer) POC Glucose (mg/dL) 198 H 221 H 248 H Random Glucose Calcium Phosphorus Magnesium Urine Color Urine Clarity Urine pH Ur Specific [place] Urine Protein Urine Glucose (UA) Urine Ketones Urine Blood Urine Nitrate Urine Bilirubin Urine Urobilinogen Ur Leukocyte Esterase Urine WBC (Auto) Urine RBC (Auto) Ur Squamous Epith Cells Urine Bacteria 06/21/17 06/21/17 06/21/17 05:14 06:14 06:48 WBC RBC Hgb Hct MCV MCH MCHC RDW Plt Count MPV Neut % (Auto) Lymph % (Auto) [place] % (Auto) Eos % (Auto) Baso % (Auto) Neut # Lymph # [place] # Eos # Baso # Neutrophils % (Manual) Band Neutrophils % Lymphocytes % (Manual) Monocytes % (Manual) Platelet Estimate Large Platelets Polychromasia Hypochromasia (manual) Anisocytosis (manual) Sodium Potassium Chloride Carbon Dioxide Anion Gap BUN Creatinine Est GFR ( Amer) Est GFR (Non-Af Amer) POC Glucose (mg/dL) 258 H 217 H Random Glucose Calcium Phosphorus Magnesium Urine Color Yellow Urine Clarity Hazy Urine pH 5.0 Ur Specific [place] 1.010 Urine Protein 2+ H Urine Glucose (UA) 3+ H Urine Ketones Trace Urine Blood Negative Urine Nitrate Negative Urine Bilirubin Negative Urine Urobilinogen Normal Ur Leukocyte Esterase 1+ H Urine WBC (Auto) 43 H Urine RBC (Auto) 1 Ur Squamous Epith Cells < 1 Urine Bacteria Rare 06/21/17 06/21/17 06/21/17 06:48 06:48 07:09 WBC 17.9 H RBC 3.24 L Hgb 9.8 L Hct 29.0 L MCV 89.7 D MCH 30.3 MCHC 33.8 RDW 13.5 Plt Count 327 MPV 8.8 Neut % (Auto) 88.2 H Lymph % (Auto) 4.4 L [place] % (Auto) 7.1 Eos % (Auto) 0.1 Baso % (Auto) 0.2 Neut # 15.8 H Lymph # 0.8 L [place] # 1.3 H Eos # 0.0 Baso # 0.0 Neutrophils % (Manual) 75 Band Neutrophils % 12 H* Lymphocytes % (Manual) 4 L Monocytes % (Manual) 9 Platelet Estimate Normal Large Platelets Present Polychromasia Slight Hypochromasia (manual) Slight Anisocytosis (manual) Slight Sodium 144 Potassium 3.0 L Chloride 108 H Carbon Dioxide 23 Anion Gap 16 BUN 21 H Creatinine 0.9 Est GFR ( Amer) > 60 Est GFR (Non-Af Amer) > 60 POC Glucose (mg/dL) 201 H Random Glucose 229 H Calcium 8.9 Phosphorus 1.8 L Magnesium 1.7 Urine Color Urine Clarity Urine pH Ur Specific [place] Urine Protein Urine Glucose (UA) Urine Ketones Urine Blood Urine Nitrate Urine Bilirubin Urine Urobilinogen Ur Leukocyte Esterase Urine WBC (Auto) Urine RBC (Auto) Ur Squamous Epith Cells Urine Bacteria 06/21/17 06/21/17 07:51 11:05 WBC RBC Hgb Hct MCV MCH MCHC RDW Plt Count MPV Neut % (Auto) Lymph % (Auto) [place] % (Auto) Eos % (Auto) Baso % (Auto) Neut # Lymph # [place] # Eos # Baso # Neutrophils % (Manual) Band Neutrophils % Lymphocytes % (Manual) Monocytes % (Manual) Platelet Estimate Large Platelets Polychromasia Hypochromasia (manual) Anisocytosis (manual) Sodium Potassium Chloride Carbon Dioxide Anion Gap BUN Creatinine Est GFR ( Amer) Est GFR (Non-Af Amer) POC Glucose (mg/dL) 211 H 247 H Random Glucose Calcium Phosphorus Magnesium Urine Color Urine Clarity Urine pH Ur Specific [place] Urine Protein Urine Glucose (UA) Urine Ketones Urine Blood Urine Nitrate Urine Bilirubin Urine Urobilinogen Ur Leukocyte Esterase Urine WBC (Auto) Urine RBC (Auto) Ur Squamous Epith Cells Urine Bacteria
[2017-06-21] MEDS ORDERED: Potassium Chloride 10 mEq ER Tab PO STA (14:54)
[2017-06-21] MEDS ORDERED: Potassium Chloride 20 mEq ER Tab PO STA (15:37)
[2017-06-21] MEDS: (Lantus) Insulin Glargine, Recombinant SC SCH (22:27)
[2017-06-22 06:14] LABS: BASO # 0.1 K/uL (0.0-0.2); BASO % 0.4 % (0.0-2.0); EOS % 0.1 % (0.0-4.0); HEMOGLOBIN 10.5 g/dL (11.0-16.0); LYMPH # 1.5 K/uL (1.0-4.3); LYMPH % 8.2 % (20.0-40.0); MEAN CELL VOLUME 90.3 fL (81.0-99.0); MEAN CORPUSCULAR HEMOGLOBIN 29.8 pg (27.0-31.0); MEAN CORPUSCULAR HGB CONC 33.1 g/dL (33.0-37.0); MEAN PLATELET VOLUME 9.2 fL (7.2-11.7); MONO # 1.8 K/uL (0.0-0.8); MONO % 9.8 % (0.0-10.0); NEUT # 15.2 K/uL (1.8-7.0); NEUT % 81.5 % (50.0-75.0); PLATELET COUNT 383 K/uL (130-400); RBC 3.53 Mil/uL (3.80-5.20); RED CELL DISTRIBUTION WIDTH 13.7 % (11.5-14.5); WHITE BLOOD COUNT 18.6 K/uL (4.8-10.8)
[2017-06-22 06:31] LABS: ALBUMIN 3.3 g/dL (3.5-5.0); ALT/SGPT 25 U/L (9-52); AST/SGOT 28 U/L (14-36); BLOOD UREA NITROGEN 23 mg/dL (7-17); GFR AFRICAN-AMERICAN > 60; GFR NON-AFRICAN AMERICAN 51; MAGNESIUM 1.7 mg/dL (1.6-2.3)
[2017-06-22 08:24] LABS: BANDS 8 % (0-2); LYMPHOCYTE 7 % (20-40); MONOCYTE 7 % (0-10); NEUTROPHIL 78 % (50-75); TOTAL CELLS COUNTED 100
[2017-06-22 08:27] LABS: PLATELET ESTIMATE NORMAL (NORMAL)
[2017-06-22] MEDS: (Novolin R) Insulin Human Regular 100 units/ml vial SC SCH ×4 (08:31→23:00)
[2017-06-22] MEDS: Ciprofloxacin 400mg/200ml D5W 400 MG/200 ML BAG IVPB SCH ×2 (10:38→22:59)
[2017-06-22] MEDS: Enoxaparin 40 mg Syringe SC SCH (10:43)
[2017-06-22 10:45] LABS: LIPASE 142 U/L (23-300)
[2017-06-22] MEDS ORDERED: Iohexol 240 (50 ml) PO ONE (11:15)
--- NOTE | 2017-06-22 11:55 | CP.CCUPN ---
CCU Subjective - Physician Review Subjective (Free Text): Patient was seen and examined at bedside in the morning. Patient reports having epigastric and generalized abdominal pain with nausea, but denies vomiting. Patient also reports having a mass on the right side of her neck for the past two months. Patient denies chest pain, palpitations, shortness of breath, vomiting, dizziness, and dysuria. 06/22/17 16:37 CCU Objective - Vital Signs / Intake & Output Vital Signs (Last 4 hours): Vital Signs Temp Pulse Resp BP Pulse Ox 06/22/17 09:33 92 H 14 134/75 97 06/22/17 09:00 98 H 21 96 06/22/17 08:34 101 H 24 162/102 H 98 06/22/17 08:00 98.1 F 105 H 17 97 Intake and Output (Last 8hrs): Intake & Output 06/21/17 06/22/17 06/22/17 22:59 06:59 14:59 Intake Total 477 253 360 Output Total 350 650 250 Balance 127 -397 110 Intake: Intake, IV Amount 67 133 Right Distal Port 67 133 Oral 410 120 360 Output: Urine 350 650 250 Urine, Voided 350 650 250 Other: # Voids Urine, Voided 0 1 0 # Bowel Movements 0 0 0 - Physical Exam Head: Positive for: Atraumatic, Normocephalic Pupils: Positive for: PERRL Extroacular Muscles: Positive for: EOMI Conjunctiva: Positive for: Normal Mouth: Positive for: Moist Mucous Membranes Neck: Positive for: Normal Range of Motion, Other (Right thyroid nodule) Respiratory/Chest: Positive for: Clear to Auscultation. Negative for: Wheezes, Rhonchi Cardiovascular: Positive for: Regular Rate and Rhythm, Murmurs, Normal S1, S2, Tachycardic Abdomen: Positive for: Tenderness, Normal Bowel Sounds Upper Extremity: Positive for: Normal Inspection. Negative for: Edema Lower Extremity: Positive for: Normal Inspection. Negative for: Edema Skin: Positive for: Warm, Dry, Normal Color Psychiatric: Positive for: Alert, Oriented x 3 - Medications Active Medications: Active Medications Generic Name Dose Route Start Last Admin Trade Name Freq PRN Reason Stop Dose Admin Enoxaparin Sodium 40 mg 06/21/17 10:00 06/22/17 10:43 Lovenox SC 40 mg DAILY JU[facility]UEL Administration Ciprofloxacin 400 mg in 200 mls @ 133 mls/hr 06/21/17 10:00 06/22/17 10:38 Cipro 400mg/200ml Dsw IVPB 133 mls/hr Q12H JU[facility]UEL Administration Potassium Chloride 40 meq/ 1,020 mls @ 100 mls/hr 06/22/17 10:30 06/22/17 11: 45 Sodium Chloride IV 100 mls/hr .[id number] JUAN MANUEL Administration Insulin Glargine 10 unit 06/21/17 22:00 06/21/17 22:27 Lantus SC 10 unit HS JUAN MANUEL Administration Insulin Human Regular 0 unit 06/21/17 11:30 06/22/17 08:31 Novolin R SC 1 unit ACHS JUAN MANUEL Administration Protocol Lisinopril 5 mg 06/21/17 12:00 06/22/17 10:50 Zestril PO 5 mg DAILY JU[facility]UEL Administration Ondansetron HCl 4 mg 06/20/17 21:34 06/22/17 08:34 Zofran Inj IVP 4 mg Q4H PRN Administration Nausea/Vomiting Pantoprazole Sodium 40 mg 06/20/17 18:00 06/22/17 10:45 Protonix Inj IVP 40 mg DAILY JUAN MANUEL Administration - Patient Studies Lab Studies: Lab Studies 06/22/17 06/22/17 06/22/17 Range/Units 11:01 07:12 06:03 WBC 18.6 H (4.8-10.8) K/uL RBC 3.53 L (3.80-5.20) Mil/uL Hgb 10.5 L (11.0-16.0) g/dL Hct 31.9 L (34.0-47.0) % MCV 90.3 (81.0-99.0) fL MCH 29.8 (27.0-31.0) pg MCHC 33.1 (33.0-37.0) g/dL RDW 13.7 (11.5-14.5) % Plt Count 383 (130-400) K/uL MPV 9.2 (7.2-11.7) fL Neut % (Auto) 81.5 H (50.0-75.0) % Lymph % (Auto) 8.2 L (20.0-40.0) % [place] % (Auto) 9.8 (0.0-10.0) % Eos % (Auto) 0.1 (0.0-4.0) % Baso % (Auto) 0.4 (0.0-2.0) % Neut # 15.2 H (1.8-7.0) K/uL Lymph # 1.5 (1.0-4.3) K/uL [place] # 1.8 H (0.0-0.8) K/uL Eos # 0.0 (0.0-0.7) K/uL Baso # 0.1 (0.0-0.2) K/uL Neutrophils % (Manual) 78 H (50-75) % Band Neutrophils % 8 H (0-2) % Lymphocytes % (Manual) 7 L (20-40) % Monocytes % (Manual) 7 (0-10) % Platelet Estimate Normal (NORMAL) RBC Morphology Normal Sodium (132-148) mmol/L Potassium (3.6-5.2) mmol/L Chloride (98-107) mmol/L Carbon Dioxide (22-30) mmol/L Anion Gap (10-20) BUN (7-17) mg/dL Creatinine (0.7-1.2) MG/DL Est GFR ( Amer) Est GFR (Non-Af Amer) POC Glucose (mg/dL) 327 H 279 H (65-110) mg/dL Random Glucose (65-105) mg/dL Calcium (8.6-10.4) mg/dl Phosphorus (2.5-4.5) mg/dL Magnesium (1.6-2.3) mg/dL Total Bilirubin (0.2-1.3) mg/dL AST (14-36) U/L ALT (9-52) U/L Alkaline Phosphatase (38-126) U/L Total Protein (6.3-8.3) g/dL Albumin (3.5-5.0) g/dL Globulin (2.2-3.9) gm/dL Albumin/Globulin Ratio (1.0-2.1) Lipase (23-300) U/L 06/22/17 06/21/17 06/21/17 Range/Units 06:02 21:43 15:57 WBC (4.8-10.8) K/uL RBC (3.80-5.20) Mil/uL Hgb (11.0-16.0) g/dL Hct (34.0-47.0) % MCV (81.0-99.0) fL MCH (27.0-31.0) pg MCHC (33.0-37.0) g/dL RDW (11.5-14.5) % Plt Count (130-400) K/uL MPV (7.2-11.7) fL Neut % (Auto) (50.0-75.0) % Lymph % (Auto) (20.0-40.0) % [place] % (Auto) (0.0-10.0) % Eos % (Auto) (0.0-4.0) % Baso % (Auto) (0.0-2.0) % Neut # (1.8-7.0) K/uL Lymph # (1.0-4.3) K/uL [place] # (0.0-0.8) K/uL Eos # (0.0-0.7) K/uL Baso # (0.0-0.2) K/uL Neutrophils % (Manual) (50-75) % Band Neutrophils % (0-2) % Lymphocytes % (Manual) (20-40) % Monocytes % (Manual) (0-10) % Platelet Estimate (NORMAL) RBC Morphology Sodium 135 (132-148) mmol/L Potassium 3.9 (3.6-5.2) mmol/L Chloride 98 (98-107) mmol/L Carbon Dioxide 21 L (22-30) mmol/L Anion Gap 20 (10-20) BUN 23 H (7-17) mg/dL Creatinine 1.1 (0.7-1.2) MG/DL Est GFR ( Amer) > 60 Est GFR (Non-Af Amer) 51 POC Glucose (mg/dL) 208 H 250 H (65-110) mg/dL Random Glucose 282 H (65-105) mg/dL Calcium 9.0 (8.6-10.4) mg/dl Phosphorus 2.9 (2.5-4.5) mg/dL Magnesium 1.7 (1.6-2.3) mg/dL Total Bilirubin 0.5 (0.2-1.3) mg/dL AST 28 (14-36) U/L ALT 25 (9-52) U/L Alkaline Phosphatase 137 H D (38-126) U/L Total Protein 6.7 (6.3-8.3) g/dL Albumin 3.3 L (3.5-5.0) g/dL Globulin 3.3 (2.2-3.9) gm/dL Albumin/Globulin Ratio 1.0 (1.0-2.1) Lipase 142 (23-300) U/L Laboratory Results - last 24 hr 06/21/17 06/21/17 06/22/17 15:57 21:43 06:02 WBC RBC Hgb Hct MCV MCH MCHC RDW Plt Count MPV Neut % (Auto) Lymph % (Auto) [place] % (Auto) Eos % (Auto) Baso % (Auto) Neut # Lymph # [place] # Eos # Baso # Neutrophils % (Manual) Band Neutrophils % Lymphocytes % (Manual) Monocytes % (Manual) Platelet Estimate RBC Morphology Sodium 135 Potassium 3.9 Chloride 98 Carbon Dioxide 21 L Anion Gap 20 BUN 23 H Creatinine 1.1 Est GFR ( Amer) > 60 Est GFR (Non-Af Amer) 51 POC Glucose (mg/dL) 250 H 208 H Random Glucose 282 H Calcium 9.0 Phosphorus 2.9 Magnesium 1.7 Total Bilirubin 0.5 AST 28 ALT 25 Alkaline Phosphatase 137 H D Total Protein 6.7 Albumin 3.3 L Globulin 3.3 Albumin/Globulin Ratio 1.0 Lipase 142 06/22/17 06/22/17 06/22/17 06:03 07:12 11:01 WBC 18.6 H RBC 3.53 L Hgb 10.5 L Hct 31.9 L MCV 90.3 MCH 29.8 MCHC 33.1 RDW 13.7 Plt Count 383 MPV 9.2 Neut % (Auto) 81.5 H Lymph % (Auto) 8.2 L [place] % (Auto) 9.8 Eos % (Auto) 0.1 Baso % (Auto) 0.4 Neut # 15.2 H Lymph # 1.5 [place] # 1.8 H Eos # 0.0 Baso # 0.1 Neutrophils % (Manual) 78 H Band Neutrophils % 8 H Lymphocytes % (Manual) 7 L Monocytes % (Manual) 7 Platelet Estimate Normal RBC Morphology Normal Sodium Potassium Chloride Carbon Dioxide Anion Gap BUN Creatinine Est GFR ( Amer) Est GFR (Non-Af Amer) POC Glucose (mg/dL) 279 H 327 H Random Glucose Calcium Phosphorus Magnesium Total Bilirubin AST ALT Alkaline Phosphatase Total Protein Albumin Globulin Albumin/Globulin Ratio Lipase Fingerstick Blood Sugar Results: 279 Review of Systems - Constitutional Constitutional: absent: Fever - EENT Nose/Mouth/Throat: Neck Mass (right-sided). absent: Dysphagia - Cardiovascular Cardiovascular: absent: Chest Pain, Dyspnea, Palpitations - Respiratory Respiratory: absent: Dyspnea - Gastrointestinal Gastrointestinal: Abdominal Pain, Nausea. absent: Dysphagia, Vomiting - Genitourinary Genitourinary: absent: Dysuria - Neurological Neurological: absent: Dizziness - Endocrine Endocrine: absent: Palpitations Critical Care Progress Note - Nutrition Nutrition: Nutrition Category Date Time Status Liquid Diet [DIET] Diets 06/22/17 Lunch Active Assessment/Plan - Assessment and Plan (Free Text) Assessment: 57 year old female with medical history of hypertension and diabetes, presents to the ED with abdominal pain and vomiting. Neuro: - Alert, oriented x3 Pulm: - Chest Xray: no active cardiopulmonary disease CV: - EKG: nsr at 98bpm Endo: - Diabetes - DKA: Fluid resuscitation, Insulin drip - Insulin drip was discontinued 06/21 - ISS and Lantus started - Monitor Blood glucose & anion gap (normal) - Accuchecks - HgbA1c: 7.0 - Right Thyroid nodule - Soft Tissue Neck CT: clinically palpable lump corresponds to a 4.1 x 3.7 x 4.0 cm exophytic cystic nodule in the lower pole of the right thyroid lobe; could represent a colloid cyst; cystic neoplasm, cystic degeneration in parathyroid nodule cannot be entirely excluded. Ultrasound is recommended. Heme: - Monitor H/H GI: - Nausea and vomiting: Zofran and Reglan - Abdomen/Pelvic CT: No evidence of acute pancreatitis. Mild pancreatic ductal dilatation common nonspecific. Fatty liver. Mild hepatomegaly. - Lipase: f/u Renal: - Monitor BUN/Cr ID: - Elevated WBC:18.6 - Elevated Bands: 8 (06/22), 12 (06/21) - Started Cipro 06/21 Prophylaxis - DVT: Lovenox 40mg SC daily - GI: Protonix 40mg IV Daily
--- NOTE | 2017-06-22 15:13 | CT ---
PROCEDURE: CT Abdomen and Pelvis without intravenous contrast HISTORY: pancreatitis COMPARISON: None. TECHNIQUE: Without contrast.. Contrast Dose: 0 Radiation dose: Total exam DLP = 378.08 mGy-cm. This CT exam was performed using one or more of the following dose reduction techniques: Automated exposure control, adjustment of the mA and/or kV according to patient size, and/or use of iterative reconstruction technique. FINDINGS: LOWER THORAX: Unremarkable. LIVER: Mild hepatomegaly. Fatty infiltration of the liver, diffuse. No focal mass. No biliary ductal dilatation. GALLBLADDER AND BILE DUCTS: Unremarkable. PANCREAS: Normal size. No mass. No peripancreatic fluid/ edema. No evidence of acute pancreatitis. There is diffuse mild pancreatic ductal dilatation. This is a nonspecific finding and may be the result of ampullary stricture or ampullary or pancreatic neoplasm. Evaluation with MRCP is suggested. Consider gadolinium-enhanced MRI as well. SPLEEN: Unremarkable. ADRENALS: No adrenal mass identified. The adrenal glands are poorly discernible in this patient, without evidence of discrete mass. KIDNEYS AND URETERS: No mass, calculus or hydronephrosis. Incidental extrarenal left renal pelvis. No hydroureter or ureteral calculus. VASCULATURE: Unremarkable. No aortic aneurysm. BOWEL: Unremarkable. No obstruction. No gross mural thickening. APPENDIX: Not identified. No secondary findings to suggest acute appendicitis. PERITONEUM: Unremarkable. No free fluid. No free air. LYMPH NODES: Unremarkable. No enlarged lymph nodes. BLADDER: Unremarkable. REPRODUCTIVE: Postmenopausal uterus. Solitary coarse calcification likely representing a calcified degenerated fibroid. BONES: No acute fracture. OTHER FINDINGS: None. IMPRESSION: No evidence of acute pancreatitis. Mild pancreatic ductal dilatation common nonspecific. Recommend further evaluation with MRCP and considered gadolinium-enhanced MRI of the pancreas. Fatty liver. Mild hepatomegaly. Additional minor findings as above.
--- NOTE | 2017-06-22 15:58 | CT ---
PROCEDURE: CT NECK WITHOUT CONTRAST HISTORY: Right neck lump COMPARISON: None. TECHNIQUE: CT of the neck without intravenous contrast. Coronal and sagittal reformats generated. Please note evaluation of mass and lymphadenopathy is limited in the absence of intravenous contrast Radiation dose: DLP 392.86 mGy-cm This CT exam was performed using one or more of the following dose reduction techniques: Automated exposure control, adjustment of the mA and/or kV according to patient size, and/or use of iterative reconstruction technique. FINDINGS: NASOPHARYNX: Within normal limits. SUPRAHYOID NECK: The oropharynx, oral cavity, parapharyngeal space and retropharyngeal space are within normal limits. INFRAHYOID NECK: The larynx, hypopharynx, and supraglottic space are within normal limits. Vocal cords intact. MASS: No bulky mass. GLANDS: Parotid and submandibular glands unremarkable. Thyroid gland: At the site of clinically palpable lump in the right lower neck, there is a 4.1 x 3.7 x 4.0 cm exophytic cystic nodule in the lower pole of the right thyroid lobe. There is a solitary 8 mm low-attenuation nodule in the left lower pole. LYMPH NODES: Normal. No lymphadenopathy. CERVICAL SPINE: No fracture or focal lesion. OTHER FINDINGS: None. IMPRESSION: 1. Examination is limited in the absence of intravenous contrast. Allowing for this, the BB marker at the site of clinically palpable lump corresponds to a 4.1 x 3.7 x 4.0 cm exophytic cystic nodule in the lower pole of the right thyroid lobe. Findings could represent a colloid cyst however cystic neoplasm and cystic degeneration in parathyroid nodule cannot be entirely excluded. A dedicated thyroid ultrasound is recommended for further characterization. 2. Subcentimeter nodule in the lower pole of the left thyroid lobe could also be further characterized during the day detected thyroid ultrasound.
--- NOTE | 2017-06-22 18:46 | CP.PCM.PN ---
Subjective - Date & Time of Evaluation Date of Evaluation: 06/22/17 Time of Evaluation: 14:40 - Subjective Subjective: clinically same Objective - Vital Signs/Intake and Output Vital Signs (last 24 hours): Temp Pulse Resp BP Pulse Ox 98.4 F 99 H 15 168/99 H 94 L 06/22/17 16:00 06/22/17 18:00 06/22/17 18:00 06/22/17 17:33 06/22/17 18:00 Intake and Output: 06/22/17 06/22/17 06:59 18:59 Intake Total 440 2260 Output Total 650 750 Balance -210 1510 - Medications Medications: Current Medications Enoxaparin Sodium (Lovenox) 40 mg SC DAILY [facility] Last Admin: 06/22/17 10:43 Dose: 40 mg Ciprofloxacin (Cipro 400mg/200ml Dsw) 400 mg in 200 mls @ 133 mls/hr IVPB Q12H [facility] Last Admin: 06/22/17 10:38 Dose: 133 mls/hr Potassium Chloride 40 meq/ (Sodium Chloride) 1,020 mls @ 100 mls/hr IV .[id number] [facility] Last Admin: 06/22/17 11:45 Dose: 100 mls/hr Insulin Glargine (Lantus) 10 unit SC HS [facility] Last Admin: 06/21/17 22:27 Dose: 10 unit Insulin Human Regular (Novolin R) 0 unit SC ACHS JUAN MANUEL PRN Reason: Protocol Last Admin: 06/22/17 16:42 Dose: 2 unit Lisinopril (Zestril) 5 mg PO DAILY [facility] Last Admin: 06/22/17 10:50 Dose: 5 mg Ondansetron HCl (Zofran Inj) 4 mg IVP Q4H PRN PRN Reason: Nausea/Vomiting Last Admin: 06/22/17 08:34 Dose: 4 mg Pantoprazole Sodium (Protonix Inj) 40 mg IVP DAILY [facility] Last Admin: 06/22/17 10:45 Dose: 40 mg - Labs Labs: 06/22/17 06:03 06/22/17 06:02 - Constitutional Appears: Well - Head Exam Head Exam: ATRAUMATIC, NORMAL INSPECTION, NORMOCEPHALIC - Eye Exam Eye Exam: EOMI, Normal appearance, PERRL Pupil Exam: NORMAL ACCOMODATION, PERRL - ENT Exam ENT Exam: Mucous Membranes Moist, Normal Exam - Neck Exam Neck Exam: Full ROM, Normal Inspection. absent: Lymphadenopathy - Respiratory Exam Respiratory Exam: Decreased Breath Sounds - Cardiovascular Exam Cardiovascular Exam: REGULAR RHYTHM, +S1, +S2 - GI/Abdominal Exam GI & Abdominal Exam: Soft, Diminished Bowel Sounds - Rectal Exam Rectal Exam: Deferred
[2017-06-22] MEDS: (Lantus) Insulin Glargine, Recombinant SC SCH (23:00)
[2017-06-23 06:05] LABS: BASO # 0.1 K/uL (0.0-0.2); BASO % 0.4 % (0.0-2.0); EOS % 0.1 % (0.0-4.0); HEMOGLOBIN 10.5 g/dL (11.0-16.0); LYMPH # 1.4 K/uL (1.0-4.3); LYMPH % 10.1 % (20.0-40.0); MEAN CELL VOLUME 90.6 fL (81.0-99.0); MEAN CORPUSCULAR HEMOGLOBIN 30.2 pg (27.0-31.0); MEAN CORPUSCULAR HGB CONC 33.3 g/dL (33.0-37.0); MEAN PLATELET VOLUME 9.1 fL (7.2-11.7); MONO # 1.6 K/uL (0.0-0.8); MONO % 11.9 % (0.0-10.0); NEUT # 10.8 K/uL (1.8-7.0); NEUT % 77.5 % (50.0-75.0); RBC 3.49 Mil/uL (3.80-5.20); RED CELL DISTRIBUTION WIDTH 13.8 % (11.5-14.5); WHITE BLOOD COUNT 13.9 K/uL (4.8-10.8)
[2017-06-23 06:15] LABS: AST/SGOT 21 U/L (14-36); GFR AFRICAN-AMERICAN > 60; GFR NON-AFRICAN AMERICAN > 60
[2017-06-23 06:16] LABS: ALB/GLOB RATIO 0.8 (1.0-2.1); ALT/SGPT 28 U/L (9-52); BLOOD UREA NITROGEN 19 mg/dL (7-17); CALCIUM 8.6 mg/dl (8.6-10.4)
[2017-06-23 06:17] LABS: MAGNESIUM 1.7 mg/dL (1.6-2.3)
[2017-06-23 06:33] LABS: T4 6.63 ug/dL (5.5-11.0)
[2017-06-23 06:47] LABS: T3 0.728 nmol/L (1.49-2.60)
[2017-06-23] MEDS: (Novolin R) Insulin Human Regular 100 units/ml vial SC SCH ×2 (08:14→11:52)
--- NOTE | 2017-06-23 09:55 | US ---
HISTORY: Mass TECHNIQUE: Grayscale imaging was performed. COMPARISON: CT neck from 06/22/2017 FINDINGS: RIGHT LOBE: Enlarged and measures 6.9 x 2.9 x 2.8 cm. Normal echotexture and flow. Nodules: There is a 4.0 x 3.3 x 4.4 cm predominantly cystic nodule with internal echoes and peripheral echogenicity with central echogenic component without significant central flow on color Doppler imaging. LEFT LOBE: Enlarged and measures 5.9 x 2.0 x 2.2 cm. Normal echotexture and flow. Nodules: There is a 13 x 7 x 10 mm solid hyperechoic nodule in the interpolar region and a 14 x 21 x 11 mm solid nodule in the lower pole. ISTHMUS: Measures 0.4 cm. Normal echotexture and flow. Nodules: None OTHER FINDINGS: None . IMPRESSION: 1. 4.0 x 3.3 x 4.4 cm predominantly cystic nodule in the lower pole of the right thyroid lobe could represent cystic degeneration in the solid nodule however cystic neoplasm cannot be entirely excluded. Please correlate with FNA. 2. Two solid nodules in the left lobe, the larger in the lower pole measures 21 mm.
[2017-06-23] MEDS: Enoxaparin 40 mg Syringe SC SCH (10:41)
[2017-06-23] MEDS: Ciprofloxacin 400mg/200ml D5W 400 MG/200 ML BAG IVPB SCH ×2 (10:42→23:19)
--- NOTE | 2017-06-23 12:02 | CP.CCUPN ---
<GeoeagleMarisela keaneKita - Last Filed: 06/23/17 11:49> CCU Subjective - Physician Review Subjective (Free Text): Patient was seen and examined at bedside in the morning. Patient reports still having epigastric and generalized abdominal pain with nausea, and one episode of vomiting. She also reports having diarrhea. Patient denies chest pain, palpitations, shortness of breath, fevers, dizziness, and dysuria. Patient is stable for transfer to inpatient medicine team. 06/23/17 11:49 CCU Objective - Vital Signs / Intake & Output Intake and Output (Last 8hrs): Intake & Output 06/22/17 06/23/17 06/23/17 22:59 06:59 14:59 Intake Total 1000 850 100 Output Total 400 1000 Balance 600 -150 100 Intake: Intake, IV Amount 800 850 100 Right Antecubital 800 850 100 Oral 200 0 0 Output: Urine 400 1000 Urine, Voided 400 1000 Other: # Voids Urine, Voided 0 0 0 # Bowel Movements 0 0 0 - Physical Exam Head: Positive for: Atraumatic, Normocephalic Pupils: Positive for: PERRL Extroacular Muscles: Positive for: EOMI Conjunctiva: Positive for: Normal Mouth: Positive for: Moist Mucous Membranes Neck: Positive for: Normal Range of Motion, Other (Right thyroid nodule) Respiratory/Chest: Positive for: Clear to Auscultation. Negative for: Wheezes, Rhonchi Cardiovascular: Positive for: Regular Rate and Rhythm, Normal S1, S2 Abdomen: Positive for: Tenderness, Normal Bowel Sounds Upper Extremity: Positive for: Normal Inspection. Negative for: Edema Lower Extremity: Positive for: Normal Inspection. Negative for: Edema Skin: Positive for: Warm, Dry, Normal Color Psychiatric: Positive for: Alert, Oriented x 3 - Medications Active Medications: Active Medications Generic Name Dose Route Start Last Admin Trade Name Freq PRN Reason Stop Dose Admin Enoxaparin Sodium 40 mg 06/21/17 10:06/23/17 10:41 Lovenox SC 40 mg DAILY JUAN MANUEL Administration Ciprofloxacin 400 mg in 200 mls @ 133 mls/hr 06/21/17 10:00 06/23/17 10:42 Cipro 400mg/200ml Dsw IVPB 133 mls/hr Q12H JUAN MANUEL Administration Insulin Glargine 10 unit 06/21/17 22:00 06/22/17 23:00 Lantus SC 10 unit HS JUAN MANUEL Administration Insulin Human Regular 0 unit 06/21/17 11:30 06/23/17 08:14 Novolin R SC 4 unit ACHS JUAN MANUEL Administration Protocol Lisinopril 5 mg 06/21/17 12:00 06/23/17 10:40 Zestril PO 5 mg DAILY JUAN MANUEL Administration Ondansetron HCl 4 mg 06/20/17 21:34 06/22/17 08:34 Zofran Inj IVP 4 mg Q4H PRN Administration Nausea/Vomiting Pantoprazole Sodium 40 mg 06/20/17 18:00 06/23/17 10:42 Protonix Inj IVP 40 mg DAILY JUAN MANUEL Administration - Patient Studies Lab Studies: Microbiology Studies 06/20/17 18:45 MRSA Culture (Admit) - Final Naris MRSA NOT DETECTED Lab Studies 06/23/17 06/23/17 06/23/17 Range/Units 11:07 07:34 05:59 WBC (4.8-10.8) K/uL RBC (3.80-5.20) Mil/uL Hgb (11.0-16.0) g/dL Hct (34.0-47.0) % MCV (81.0-99.0) fL MCH (27.0-31.0) pg MCHC (33.0-37.0) g/dL RDW (11.5-14.5) % Plt Count (130-400) K/uL MPV (7.2-11.7) fL Neut % (Auto) (50.0-75.0) % Lymph % (Auto) (20.0-40.0) % [place] % (Auto) (0.0-10.0) % Eos % (Auto) (0.0-4.0) % Baso % (Auto) (0.0-2.0) % Neut # (1.8-7.0) K/uL Lymph # (1.0-4.3) K/uL [place] # (0.0-0.8) K/uL Eos # (0.0-0.7) K/uL Baso # (0.0-0.2) K/uL Sodium 137 (132-148) mmol/L Potassium 4.0 (3.6-5.2) mmol/L Chloride 102 (98-107) mmol/L Carbon Dioxide 20 L (22-30) mmol/L Anion Gap 19 (10-20) BUN 19 H (7-17) mg/dL Creatinine 0.9 (0.7-1.2) MG/DL Est GFR ( Amer) > 60 Est GFR (Non-Af Amer) > 60 POC Glucose (mg/dL) 326 H 209 H (65-110) mg/dL Random Glucose 209 H (65-105) mg/dL Calcium 8.6 (8.6-10.4) mg/dl Phosphorus 2.9 (2.5-4.5) mg/dL Magnesium 1.7 (1.6-2.3) mg/dL Total Bilirubin 0.7 (0.2-1.3) mg/dL AST 21 (14-36) U/L ALT 28 (9-52) U/L Alkaline Phosphatase 100 (38-126) U/L Total Protein 6.8 (6.3-8.3) g/dL Albumin 3.0 L (3.5-5.0) g/dL Globulin 3.8 (2.2-3.9) gm/dL Albumin/Globulin Ratio 0.8 L (1.0-2.1) Thyroxine (T4) 6.63 (5.5-11.0) ug/dL Total T3 0.728 L (1.49-2.60) nmol/L TSH 3rd Generation 0.04 L (0.46-4.68) mIU/L 06/23/17 06/22/17 06/22/17 Range/Units 05:59 21:38 16:12 WBC 13.9 H (4.8-10.8) K/uL RBC 3.49 L (3.80-5.20) Mil/uL Hgb 10.5 L (11.0-16.0) g/dL Hct 31.6 L (34.0-47.0) % MCV 90.6 (81.0-99.0) fL MCH 30.2 (27.0-31.0) pg MCHC 33.3 (33.0-37.0) g/dL RDW 13.8 (11.5-14.5) % Plt Count 387 (130-400) K/uL MPV 9.1 (7.2-11.7) fL Neut % (Auto) 77.5 H (50.0-75.0) % Lymph % (Auto) 10.1 L (20.0-40.0) % [place] % (Auto) 11.9 H (0.0-10.0) % Eos % (Auto) 0.1 (0.0-4.0) % Baso % (Auto) 0.4 (0.0-2.0) % Neut # 10.8 H (1.8-7.0) K/uL Lymph # 1.4 (1.0-4.3) K/uL [place] # 1.6 H (0.0-0.8) K/uL Eos # 0.0 (0.0-0.7) K/uL Baso # 0.1 (0.0-0.2) K/uL Sodium (132-148) mmol/L Potassium (3.6-5.2) mmol/L Chloride (98-107) mmol/L Carbon Dioxide (22-30) mmol/L Anion Gap (10-20) BUN (7-17) mg/dL Creatinine (0.7-1.2) MG/DL Est GFR ( Amer) Est GFR (Non-Af Amer) POC Glucose (mg/dL) 178 H 167 H (65-110) mg/dL Random Glucose (65-105) mg/dL Calcium (8.6-10.4) mg/dl Phosphorus (2.5-4.5) mg/dL Magnesium (1.6-2.3) mg/dL Total Bilirubin (0.2-1.3) mg/dL AST (14-36) U/L ALT (9-52) U/L Alkaline Phosphatase (38-126) U/L Total Protein (6.3-8.3) g/dL Albumin (3.5-5.0) g/dL Globulin (2.2-3.9) gm/dL Albumin/Globulin Ratio (1.0-2.1) Thyroxine (T4) (5.5-11.0) ug/dL Total T3 (1.49-2.60) nmol/L TSH 3rd Generation (0.46-4.68) mIU/L Laboratory Results - last 24 hr 0706/22/17 06/23/17 16:12 21:38 05:59 WBC 13.9 H RBC 3.49 L Hgb 10.5 L Hct 31.6 L MCV 90.6 MCH 30.2 MCHC 33.3 RDW 13.8 Plt Count 387 MPV 9.1 Neut % (Auto) 77.5 H Lymph % (Auto) 10.1 L [place] % (Auto) 11.9 H Eos % (Auto) 0.1 Baso % (Auto) 0.4 Neut # 10.8 H Lymph # 1.4 [place] # 1.6 H Eos # 0.0 Baso # 0.1 Sodium Potassium Chloride Carbon Dioxide Anion Gap BUN Creatinine Est GFR ( Amer) Est GFR (Non-Af Amer) POC Glucose (mg/dL) 167 H 178 H Random Glucose Calcium Phosphorus Magnesium Total Bilirubin AST ALT Alkaline Phosphatase Total Protein Albumin Globulin Albumin/Globulin Ratio Thyroxine (T4) Total T3 TSH 3rd Generation 06/23/17 06/23/17 06/23/17 05:59 07:34 11:07 WBC RBC Hgb Hct MCV MCH MCHC RDW Plt Count MPV Neut % (Auto) Lymph % (Auto) [place] % (Auto) Eos % (Auto) Baso % (Auto) Neut # Lymph # [place] # Eos # Baso # Sodium 137 Potassium 4.0 Chloride 102 Carbon Dioxide 20 L Anion Gap 19 BUN 19 H Creatinine 0.9 Est GFR ( Amer) > 60 Est GFR (Non-Af Amer) > 60 POC Glucose (mg/dL) 209 H 326 H Random Glucose 209 H Calcium 8.6 Phosphorus 2.9 Magnesium 1.7 Total Bilirubin 0.7 AST 21 ALT 28 Alkaline Phosphatase 100 Total Protein 6.8 Albumin 3.0 L Globulin 3.8 Albumin/Globulin Ratio 0.8 L Thyroxine (T4) 6.63 Total T3 0.728 L TSH 3rd Generation 0.04 L Fingerstick Blood Sugar Results: 209 Review of Systems - Constitutional Constitutional: absent: Fever - EENT Ears: absent: Dizziness - Cardiovascular Cardiovascular: absent: Chest Pain, Dyspnea, Edema, Palpitations - Respiratory Respiratory: absent: Cough, Dyspnea - Gastrointestinal Gastrointestinal: Abdominal Pain, Diarrhea, Nausea, Vomiting. absent: Constipation - Genitourinary Genitourinary: absent: Dysuria - Neurological Neurological: absent: Dizziness, Headaches - Endocrine Endocrine: absent: Palpitations Critical Care Progress Note - Nutrition Nutrition: Nutrition Category Date Time Status Liquid Diet [DIET] Diets 06/22/17 Lunch Active Assessment/Plan - Assessment and Plan (Free Text) Assessment: 57 year old female with medical history of hypertension and diabetes, presents to the ED with abdominal pain and vomiting. Neuro: - Alert, oriented x3 Pulm: - Chest Xray: no active cardiopulmonary disease CV: - EKG: nsr at 98bpm Endo: - Diabetes - DKA: Fluid resuscitation, Insulin drip - Insulin drip was discontinued 06/21 - ISS and Lantus started - Monitor Blood glucose & anion gap (normal) - Accuchecks - HgbA1c: 7.0 - Right Thyroid nodule - TSH 0.04 - T3: 0.728 - T4: 6.65 - Soft Tissue Neck CT: clinically palpable lump corresponds to a 4.1 x 3.7 x 4.0 cm exophytic cystic nodule in the lower pole of the right thyroid lobe; could represent a colloid cyst; cystic neoplasm, cystic degeneration in parathyroid nodule cannot be entirely excluded. Ultrasound is recommended. - Thyroid US:4.0x3.3x4.4cm predominantly cystic nodule in lower pole of right thyroid lobe; could represent cystic degeneration in solid nodule; cystic neoplasm not excluded. Twi solid nodules in left lobe, larger in the lower pole , measuring 21mm. - Endo consulted- Dr. Baumann - IR consulted for thyroid nodule biopsy Heme: - Monitor H/H GI: - Nausea and vomiting: Zofran and Reglan - Abdomen/Pelvic CT: No evidence of acute pancreatitis. Mild pancreatic ductal dilatation common nonspecific. Fatty liver. Mild hepatomegaly. - Lipase: 142 - Diarrhea- possibly due to CT contrast received yesterday - C.Diff: f/u Renal: - Monitor BUN/Cr ID: - Elevated WBC:18.6 - Elevated Bands: 8 (06/22), 12 (06/21) - Started Cipro 06/21 Prophylaxis - DVT: Lovenox 40mg SC daily - GI: Protonix 40mg IV Daily Patient is stable for transfer out of ICU to inpatient medicine. <Luigi Vaca - Last Filed: 06/23/17 18:28> CCU Objective - Vital Signs / Intake & Output Vital Signs (Last 4 hours): Vital Signs Temp Pulse Resp BP Pulse Ox 06/23/17 16:00 98.1 F 06/23/17 15:33 75 14 141/86 99 06/23/17 14:33 83 13 151/91 H 100 Intake and Output (Last 8hrs): Intake & Output 06/23/17 06/23/17 06/23/17 06:59 14:59 22:59 Intake Total 850 650 Output Total 1000 1050 Balance -150 -400 Intake: Intake, IV Amount 850 500 Right Antecubital 850 500 Oral 0 150 Output: Urine 1000 1050 Urine, Voided 1000 1050 Other: # Voids Urine, Voided 0 0 0 # Bowel Movements 0 0 0 - Medications Active Medications: Active Medications Generic Name Dose Route Start Last Admin Trade Name Freq PRN Reason Stop Dose Admin Enoxaparin Sodium 40 mg 06/21/17 10:00 06/23/17 10:41 Lovenox SC 40 mg DAILY JUAN MANUEL Administration Ciprofloxacin 400 mg in 200 mls @ 133 mls/hr 06/21/17 10:00 06/23/17 10:42 Cipro 400mg/200ml Dsw IVPB 133 mls/hr Q12H JUAN MANUEL Administration Insulin Aspart 8 unit 06/23/17 16:30 06/23/17 18:17 Novolog SC Not Given AC JUAN MANUEL Insulin Aspart 0 unit 06/23/17 16:30 06/23/17 18:17 Novolog SC Not Given ACHS [facility] Protocol Insulin Glargine 14 unit 06/23/17 22:00 Lantus SC HS JUAN MANUEL Lisinopril 10 mg 06/24/17 10:00 Zestril PO DAILY JUAN MANUEL Ondansetron HCl 4 mg 06/20/17 21:34 06/23/17 11:56 Zofran Inj IVP 4 mg Q4H PRN Administration Nausea/Vomiting Pantoprazole Sodium 40 mg 06/20/17 18:00 06/23/17 10:42 Protonix Inj IVP 40 mg DAILY JUAN MANUEL Administration - Patient Studies Lab Studies: Microbiology Studies 06/20/17 18:45 MRSA Culture (Admit) - Final Naris MRSA NOT DETECTED Lab Studies 06/23/17 06/23/17 06/23/17 Range/Units 16:14 11:07 07:34 WBC (4.8-10.8) K/uL RBC (3.80-5.20) Mil/uL Hgb (11.0-16.0) g/dL Hct (34.0-47.0) % MCV (81.0-99.0) fL MCH (27.0-31.0) pg MCHC (33.0-37.0) g/dL RDW (11.5-14.5) % Plt Count (130-400) K/uL MPV (7.2-11.7) fL Neut % (Auto) (50.0-75.0) % Lymph % (Auto) (20.0-40.0) % [place] % (Auto) (0.0-10.0) % Eos % (Auto) (0.0-4.0) % Baso % (Auto) (0.0-2.0) % Neut # (1.8-7.0) K/uL Lymph # (1.0-4.3) K/uL [place] # (0.0-0.8) K/uL Eos # (0.0-0.7) K/uL Baso # (0.0-0.2) K/uL Sodium (132-148) mmol/L Potassium (3.6-5.2) mmol/L Chloride (98-107) mmol/L Carbon Dioxide (22-30) mmol/L Anion Gap (10-20) BUN (7-17) mg/dL Creatinine (0.7-1.2) MG/DL Est GFR ( Amer) Est GFR (Non-Af Amer) POC Glucose (mg/dL) 159 H 326 H 209 H (65-110) mg/dL Random Glucose (65-105) mg/dL Calcium (8.6-10.4) mg/dl Phosphorus (2.5-4.5) mg/dL Magnesium (1.6-2.3) mg/dL Total Bilirubin (0.2-1.3) mg/dL AST (14-36) U/L ALT (9-52) U/L Alkaline Phosphatase (38-126) U/L Total Protein (6.3-8.3) g/dL Albumin (3.5-5.0) g/dL Globulin (2.2-3.9) gm/dL Albumin/Globulin Ratio (1.0-2.1) Thyroxine (T4) (5.5-11.0) ug/dL Total T3 (1.49-2.60) nmol/L TSH 3rd Generation (0.46-4.68) mIU/L 06/23/17 06/23/17 06/22/17 Range/Units 05:59 05:59 21:38 WBC 13.9 H (4.8-10.8) K/uL RBC 3.49 L (3.80-5.20) Mil/uL Hgb 10.5 L (11.0-16.0) g/dL Hct 31.6 L (34.0-47.0) % MCV 90.6 (81.0-99.0) fL MCH 30.2 (27.0-31.0) pg MCHC 33.3 (33.0-37.0) g/dL RDW 13.8 (11.5-14.5) % Plt Count 387 (130-400) K/uL MPV 9.1 (7.2-11.7) fL Neut % (Auto) 77.5 H (50.0-75.0) % Lymph % (Auto) 10.1 L (20.0-40.0) % [place] % (Auto) 11.9 H (0.0-10.0) % Eos % (Auto) 0.1 (0.0-4.0) % Baso % (Auto) 0.4 (0.0-2.0) % Neut # 10.8 H (1.8-7.0) K/uL Lymph # 1.4 (1.0-4.3) K/uL [place] # 1.6 H (0.0-0.8) K/uL Eos # 0.0 (0.0-0.7) K/uL Baso # 0.1 (0.0-0.2) K/uL Sodium 137 (132-148) mmol/L Potassium 4.0 (3.6-5.2) mmol/L Chloride 102 (98-107) mmol/L Carbon Dioxide 20 L (22-30) mmol/L Anion Gap 19 (10-20) BUN 19 H (7-17) mg/dL Creatinine 0.9 (0.7-1.2) MG/DL Est GFR ( Amer) > 60 Est GFR (Non-Af Amer) > 60 POC Glucose (mg/dL) 178 H (65-110) mg/dL Random Glucose 209 H (65-105) mg/dL Calcium 8.6 (8.6-10.4) mg/dl Phosphorus 2.9 (2.5-4.5) mg/dL Magnesium 1.7 (1.6-2.3) mg/dL Total Bilirubin 0.7 (0.2-1.3) mg/dL AST 21 (14-36) U/L ALT 28 (9-52) U/L Alkaline Phosphatase 100 (38-126) U/L Total Protein 6.8 (6.3-8.3) g/dL Albumin 3.0 L (3.5-5.0) g/dL Globulin 3.8 (2.2-3.9) gm/dL Albumin/Globulin Ratio 0.8 L (1.0-2.1) Thyroxine (T4) 6.63 (5.5-11.0) ug/dL Total T3 0.728 L (1.49-2.60) nmol/L TSH 3rd Generation 0.04 L (0.46-4.68) mIU/L Laboratory Results - last 24 hr 06/22/17 06/23/17 06/23/17 21:38 05:59 05:59 WBC 13.9 H RBC 3.49 L Hgb 10.5 L Hct 31.6 L MCV 90.6 MCH 30.2 MCHC 33.3 RDW 13.8 Plt Count 387 MPV 9.1 Neut % (Auto) 77.5 H Lymph % (Auto) 10.1 L [place] % (Auto) 11.9 H Eos % (Auto) 0.1 Baso % (Auto) 0.4 Neut # 10.8 H Lymph # 1.4 [place] # 1.6 H Eos # 0.0 Baso # 0.1 Sodium 137 Potassium 4.0 Chloride 102 Carbon Dioxide 20 L Anion Gap 19 BUN 19 H Creatinine 0.9 Est GFR ( Amer) > 60 Est GFR (Non-Af Amer) > 60 POC Glucose (mg/dL) 178 H Random Glucose 209 H Calcium 8.6 Phosphorus 2.9 Magnesium 1.7 Total Bilirubin 0.7 AST 21 ALT 28 Alkaline Phosphatase 100 Total Protein 6.8 Albumin 3.0 L Globulin 3.8 Albumin/Globulin Ratio 0.8 L Thyroxine (T4) 6.63 Total T3 0.728 L TSH 3rd Generation 0.04 L 06/23/17 06/23/17 06/23/17 07:34 11:07 16:14 WBC RBC Hgb Hct MCV MCH MCHC RDW Plt Count MPV Neut % (Auto) Lymph % (Auto) [place] % (Auto) Eos % (Auto) Baso % (Auto) Neut # Lymph # [place] # Eos # Baso # Sodium Potassium Chloride Carbon Dioxide Anion Gap BUN Creatinine Est GFR ( Amer) Est GFR (Non-Af Amer) POC Glucose (mg/dL) 209 H 326 H 159 H Random Glucose Calcium Phosphorus Magnesium Total Bilirubin AST ALT Alkaline Phosphatase Total Protein Albumin Globulin Albumin/Globulin Ratio Thyroxine (T4) Total T3 TSH 3rd Generation Critical Care Progress Note - Nutrition Nutrition: Nutrition Category Date Time Status Diabetic [Consistent Carbohydrate] [DIET] Diets 06/23/17 Dinner Active Assessment/Plan (1) DKA (diabetic ketoacidoses) Current Visit: Yes Status: Acute Comment: DKA resolved Discontinue insulin drip Replace potassium Start feeding Long-acting insulin Start Cipro for elevated white count and bands (2) Vomiting Current Visit: Yes Status: Acute Attending/Attestation - Attestation I have personally seen and examined this patient.: Yes I have fully participated in the care of the patient.: Yes I have reviewed all pertinent clinical information: Yes Notes (Text): 06/23/17 18:26 Patient seen and examined in the intensive care unit. Case discussed with house staff in the morning rounds. Stable for transfer to floor DKA resolved Endocrinology consult
--- NOTE | 2017-06-23 17:15 | CP.PCM.PN ---
Subjective - Date & Time of Evaluation Date of Evaluation: 06/23/17 Time of Evaluation: 15:20 - Subjective Subjective: clinically same Objective - Vital Signs/Intake and Output Vital Signs (last 24 hours): Temp Pulse Resp BP Pulse Ox 98.1 F 75 14 141/86 99 06/23/17 16:00 06/23/17 15:33 06/23/17 15:33 06/23/17 15:33 06/23/17 15:33 Intake and Output: 06/23/17 06/23/17 06:59 18:59 Intake Total 1250 650 Output Total 1200 1050 Balance 50 -400 - Medications Medications: Current Medications Enoxaparin Sodium (Lovenox) 40 mg SC DAILY [facility] Last Admin: 06/23/17 10:41 Dose: 40 mg Ciprofloxacin (Cipro 400mg/200ml Dsw) 400 mg in 200 mls @ 133 mls/hr IVPB Q12H [facility] Last Admin: 06/23/17 10:42 Dose: 133 mls/hr Insulin Aspart (Novolog) 8 unit SC AC [facility] Insulin Aspart (Novolog) 0 unit SC ACHS [facility] PRN Reason: Protocol Insulin Glargine (Lantus) 14 unit SC HS [facility] Lisinopril (Zestril) 5 mg PO DAILY [facility] Last Admin: 06/23/17 10:40 Dose: 5 mg Ondansetron HCl (Zofran Inj) 4 mg IVP Q4H PRN PRN Reason: Nausea/Vomiting Last Admin: 06/23/17 11:56 Dose: 4 mg Pantoprazole Sodium (Protonix Inj) 40 mg IVP DAILY [facility] Last Admin: 06/23/17 10:42 Dose: 40 mg - Labs Labs: 06/23/17 05:59 06/23/17 05:59 - Constitutional Appears: Well - Head Exam Head Exam: ATRAUMATIC, NORMAL INSPECTION, NORMOCEPHALIC - Eye Exam Eye Exam: EOMI, Normal appearance, PERRL Pupil Exam: NORMAL ACCOMODATION, PERRL - ENT Exam ENT Exam: Mucous Membranes Moist, Normal Exam - Neck Exam Neck Exam: Full ROM, Normal Inspection. absent: Lymphadenopathy - Respiratory Exam Respiratory Exam: Decreased Breath Sounds - Cardiovascular Exam Cardiovascular Exam: REGULAR RHYTHM, +S1, +S2 - GI/Abdominal Exam GI & Abdominal Exam: Soft, Diminished Bowel Sounds - Rectal Exam Rectal Exam: Deferred Assessment and Plan (1) DKA (diabetic ketoacidoses) Status: Acute (2) Vomiting Status: Acute - Assessment and Plan (Free Text) Plan: WBC is 13.9 bicarbonate is 20 his better sugar is still 167 178 209 326 and 159 seen by pharmacy tech TSH is 0.0 0.04 will call endocrinology consults as T3 is also low T4 total is 6.63 and thyroid nodule continue same monitor for the vomiting coverage insulin as ordered
[2017-06-23] MEDS ORDERED: (Novolog) Insulin Aspart, Recombinant 100 u/ml 10 ml vial SC ONE ×2 (18:15→18:22)
[2017-06-23] MEDS: (Novolog) Insulin Aspart, Recombinant 100 u/ml 10 ml vial SC SCH ×3 (18:17→23:11)
[2017-06-23] MEDS ORDERED: (Lantus) Insulin Glargine, Recombinant SC SCH (22:00)
[2017-06-24 06:42] LABS: ALB/GLOB RATIO 0.9 (1.0-2.1); ALBUMIN 3.3 g/dL (3.5-5.0); ALT/SGPT 27 U/L (9-52); AST/SGOT 20 U/L (14-36); BLOOD UREA NITROGEN 17 mg/dL (7-17); GFR AFRICAN-AMERICAN > 60; GFR NON-AFRICAN AMERICAN > 60; MAGNESIUM 1.7 mg/dL (1.6-2.3)
[2017-06-24 06:47] LABS: HEMOGLOBIN 11.8 g/dL (11.0-16.0); MEAN CELL VOLUME 90.2 fL (81.0-99.0); MEAN CORPUSCULAR HEMOGLOBIN 29.4 pg (27.0-31.0); MEAN CORPUSCULAR HGB CONC 32.6 g/dL (33.0-37.0); RED CELL DISTRIBUTION WIDTH 13.6 % (11.5-14.5)
[2017-06-24 06:55] LABS: T4 9.22 ug/dL (5.5-11.0)
[2017-06-24] MEDS: (Novolog) Insulin Aspart, Recombinant 100 u/ml 10 ml vial SC SCH ×6 (08:24→21:29)
[2017-06-24] MEDS: Ciprofloxacin 400mg/200ml D5W 400 MG/200 ML BAG IVPB SCH ×2 (09:14→21:24)
[2017-06-24] MEDS: Enoxaparin 40 mg Syringe SC SCH (09:15)
--- NOTE | 2017-06-24 09:26 | CON ---
ENDOCRINOLOGY CONSULT DATE: 06/24/2017 LOCATION: ICU room #10 HISTORY OF PRESENT ILLNESS: This is a 57-year-old female with recent uncontrolled type 2 insulin-requiring diabetes, presenting here with marked hyperglycemic accelerations and diabetic ketoacidosis and is now being referred for diabetes and thyroid evaluation and management. PAST MEDICAL HISTORY: As mentioned above, history of type 2 diabetes, currently on Janumet 50/500 mg b.i.d., history of hypertension and dyslipidemia. She is currently on Zestril given as 5 mg once daily. Her primary physician is Dr. Tierra Angel. FAMILY HISTORY: Positive for hypertension and diabetes. SOCIAL HISTORY: The patient has supportive family. No known substance use. REVIEW OF SYSTEMS: As mentioned above. Admits to generalized body weakness, episodic bouts of dizziness and lightheadedness, worse on the day of admission. Also admits to easy fatigability and tiredness with optimal energy level. No chest pains or palpitations, but admits to progressive shortness of breath especially with exertion. Her oral intake has been variable with severe nausea, dyspepsia, and intractable vomiting episodes. Also, admits to marked polyuria and nocturia. PHYSICAL EXAMINATION: GENERAL: This is an average built female, in no apparent distress. VITAL SIGNS: Blood pressure of 160/90, pulse of 100 beats per minute and regular, temperature 98, and respirations 20. Height is 5 feet 1 inch and weight is 104 pounds. HEENT: Head is normocephalic. Eyes anicteric with pink conjunctivae. Funduscopy not possible at this time. Ears, nose, and throat are, otherwise, normal. NECK: Supple. Thyroid gland shows marked nodular thyromegaly, left greater than right with a prominent nodule in the right lobe, which is firm and nontender and moves with deglutition. CHEST: Adynamic precordium. S1 and S2 is rapid and regular. LUNGS: Clear to auscultation. ABDOMEN: Flat and soft with possible bowel sounds. EXTREMITIES: No peripheral edema. Pulses are +2 bilaterally. LABORATORY DATA: The chemistry shows the BUN of 19, sodium 137, potassium 4.0, chloride 102, CO2 of 20, glucose 209, and creatinine 0.9. Her glucose levels have ranged from 209 to 326 mg/dL. Her initial CO2 was 13. Thyroid ultrasound showed the right lobe measuring 6.9 x 2.6 cm with the left lobe measuring 5.9 x 2.2 cm. The prominent nodule is 4.0 x 3.3 cystic nodule on the right lobe. ASSESSMENT AND PLAN: This is a 57-year-old female with uncontrolled and decompensated type 2 insulin-requiring diabetes, presenting here with marked hyperglycemic accelerations and diabetic ketoacidosis and also evaluation of the multinodular goiter. There is a dominant cystic nodule in the right lobe with no overt compressive or obstructive neck magnification. Plan of management was discussed with the patient *------* need for initiation of insulin therapy, *------*. We will initiate diabetic education to include insulin self administration. We will also obtain a fine needle aspiration of the dominant nodule in the right lobe, possibly do an aspiration *------* and/or obtain a biopsy to ascertain the exact etiology of the nodule. It is a very large multinodular goiter *------* slightly suppressed TSH *------* a thyroid resection *------*. We will obtain *------* antithyroglobulin. *------*. We will also initiate a basal and bolus insulin regimen to optimize metabolic control. We will initiate basal insulin *------* to be given as 14 units subcu at bedtime. We will also add *------*. We will modify the coverage scale *------* Delfina Baumann MD
[2017-06-24 10:10] LABS: LYMPH # 2.9 K/uL (1.0-4.3); MONO # 1.3 K/uL (0.0-0.8); NEUT # 8.9 K/uL (1.8-7.0)
--- NOTE | 2017-06-24 11:54 | CP.PCM.PN ---
Subjective - Date & Time of Evaluation Date of Evaluation: 06/24/17 Time of Evaluation: 14:40 - Subjective Subjective: clinically same Objective - Vital Signs/Intake and Output Vital Signs (last 24 hours): Temp Pulse Resp BP Pulse Ox 98.2 F 77 9 L 157/94 H 99 06/24/17 04:00 06/24/17 04:33 06/24/17 04:33 06/24/17 04:33 06/24/17 04:33 Intake and Output: 06/24/17 06/24/17 06:59 18:59 Intake Total 550 Output Total 600 Balance -50 - Medications Medications: Current Medications Enoxaparin Sodium (Lovenox) 40 mg SC DAILY [facility] Last Admin: 06/24/17 09:15 Dose: 40 mg Ciprofloxacin (Cipro 400mg/200ml Dsw) 400 mg in 200 mls @ 133 mls/hr IVPB Q12H [facility] Last Admin: 06/24/17 09:14 Dose: 133 mls/hr Insulin Aspart (Novolog) 0 unit SC ACHS [facility] PRN Reason: Protocol Insulin Aspart (Novolog) 4 unit SC AC [facility] Insulin Glargine (Lantus) 14 unit SC HS [facility] Last Admin: 06/23/17 23:18 Dose: 14 unit Lisinopril (Zestril) 10 mg PO DAILY [facility] Last Admin: 06/24/17 09:16 Dose: 10 mg Methimazole (Tapazole) 5 mg PO BID [facility] Ondansetron HCl (Zofran Inj) 4 mg IVP Q4H PRN PRN Reason: Nausea/Vomiting Last Admin: 06/24/17 08:25 Dose: 4 mg Pantoprazole Sodium (Protonix Inj) 40 mg IVP DAILY [facility] Last Admin: 06/24/17 09:16 Dose: 40 mg - Labs Labs: 06/24/17 06:23 06/24/17 06:21 - Constitutional Appears: Well - Head Exam Head Exam: ATRAUMATIC, NORMAL INSPECTION, NORMOCEPHALIC - Eye Exam Eye Exam: EOMI, Normal appearance, PERRL Pupil Exam: NORMAL ACCOMODATION, PERRL - ENT Exam ENT Exam: Mucous Membranes Moist, Normal Exam - Neck Exam Neck Exam: Full ROM, Normal Inspection. absent: Lymphadenopathy - Respiratory Exam Respiratory Exam: Decreased Breath Sounds - Cardiovascular Exam Cardiovascular Exam: REGULAR RHYTHM, +S1, +S2 - GI/Abdominal Exam GI & Abdominal Exam: Soft, Diminished Bowel Sounds - Rectal Exam Rectal Exam: Deferred Assessment and Plan (1) DKA (diabetic ketoacidoses) Status: Acute (2) Vomiting Status: Acute - Assessment and Plan (Free Text) Plan: Patient for possible DKA much better no nausea vomiting status post supplementation of potassium and is feeling better possible discharge tomorrow morning continue as ordered
--- NOTE | 2017-06-24 15:40 | PN ---
SUBJECTIVE: This is a 57-year-old female with recent uncontrolled type 2 insulin requiring diabetes presenting here with intractable vomiting and persistent nausea and dyspepsia and since then improved clinically and metabolically as noted thereof. She received intensive insulin therapy with an insulin drip infusion for over 48 hours as noted. She also has received vigorous IV hydration with improvement of her renal and biochemical indices as noted. However, she continues to have retching and persistent nausea and dyspepsia even on a soft diet as noted. Her glycemic levels are fluctuating but improved at this time and glucose values today have ranged from 92 to 198 mg/dL. Her latest chemistry showed a BUN of 17, sodium 136, potassium 3.4, chloride 96, CO2 of 25, glucose 178 and creatinine of 0.8. Moreover she has also a very large multinodular goiter noted clinically and radiologically as noted. She denies any neck compression or obstructive symptoms as noted. Her latest thyroid studies showed a T4 of 9.22 with a TSH of 0.11 and had an initial value of 0.04 on admission. Her thyroid ultrasound showed a presence of very moderately large multinodular goiter as noted with a dominant right thyroid nodule also as noted. ASSESSMENT: This is a 57-year-old female with uncontrolled and decompensated type 2 insulin requiring diabetes presenting here with diabetic ketoacidosis and dehydration. Since then improved clinically and metabolically as noted thereof. Moreover, she also has subclinical hyperthyroidism with underlying toxic multinodular goiter confirmed both clinically and radiologically with large right and left thyroid lobes and dominant right thyroid nodule as noted. She has no overt neck compressive symptoms as discussed lengthily at bedside. Plan of management was discussed with the patient and staff. We will continue her modified basal and bolus insulin regimen and keep her on Lantus given as 14 units subQ at bedtime daily as ordered. We will also modify the NovoLog to 4 units subQ t.i.d. as her oral intake is still very suboptimal at this time. We will modify the coverage scale to avoid hypoglycemia and detailed orders have been given. We will also add Tapazole at the stat dose of 10 mg p.o. this morning followed by 5 mg b.i.d. after meals to start tonight. We will clear need medical therapy at this time and eventually if left compression or obstruction supervenes then we will recommend a thyroid resection for decompression thereof. She also needs electively fine-needle aspiration biopsy of the right thyroid nodule. It can be done on the outpatient as she is reluctant to have it done while in the hospital at this time. We will also initiate diet education and diet instruction to include insulin self administration as this is her first time to go on insulin therapy as given. Delfina Baumann MD
[2017-06-24] MEDS ORDERED: Potassium Chloride 20 mEq ER Tab PO ONE (16:45)
[2017-06-24] MEDS: methIMAzole 5 MG TAB PO SCH (17:28)
[2017-06-24] MEDS ORDERED: (Novolog) Insulin Aspart, Recombinant 100 u/ml 10 ml vial SC ONE (18:15)
--- NOTE | 2017-06-24 21:47 | CARD ---
APPROVED REPORT EKG Measurement Heart [id number] <Conclusion> Normal sinus rhythm Normal ECG
[2017-06-24] MEDS ORDERED: (Lantus) Insulin Glargine, Recombinant SC SCH (22:00)
[2017-06-25] MEDS: (Novolog) Insulin Aspart, Recombinant 100 u/ml 10 ml vial SC SCH ×6 (07:56→21:41)
[2017-06-25 08:16] VITALS: RESP 20
[2017-06-25] MEDS: Enoxaparin 40 mg Syringe SC SCH (10:07)
[2017-06-25] MEDS: Ciprofloxacin 400mg/200ml D5W 400 MG/200 ML BAG IVPB SCH ×2 (10:49→21:41)
[2017-06-25] MEDS: methIMAzole 5 MG TAB PO SCH ×2 (10:50→18:40)
[2017-06-25 14:10] LABS: BASO # 0.1 K/uL (0.0-0.2); EOS # 0.1 K/uL (0.0-0.7); EOS % 1.2 % (0.0-4.0); HEMOGLOBIN 11.2 g/dL (11.0-16.0); LYMPH # 2.1 K/uL (1.0-4.3); MEAN CELL VOLUME 90.6 fL (81.0-99.0); MEAN CORPUSCULAR HEMOGLOBIN 30.4 pg (27.0-31.0); MEAN CORPUSCULAR HGB CONC 33.6 g/dL (33.0-37.0); MEAN PLATELET VOLUME 8.9 fL (7.2-11.7); MONO # 1.1 K/uL (0.0-0.8); MONO % 9.2 % (0.0-10.0); NEUT # 8.2 K/uL (1.8-7.0); NEUT % 70.6 % (50.0-75.0); RBC 3.67 Mil/uL (3.80-5.20); RED CELL DISTRIBUTION WIDTH 13.8 % (11.5-14.5); WHITE BLOOD COUNT 11.5 K/uL (4.8-10.8)
[2017-06-25 14:20] LABS: ALBUMIN 3.3 g/dL (3.5-5.0)
[2017-06-25 14:23] LABS: AST/SGOT 23 U/L (14-36); GFR AFRICAN-AMERICAN > 60; GFR NON-AFRICAN AMERICAN > 60
[2017-06-25 14:24] LABS: ALB/GLOB RATIO 0.9 (1.0-2.1); ALT/SGPT 28 U/L (9-52); BLOOD UREA NITROGEN 19 mg/dL (7-17); CALCIUM 8.8 mg/dl (8.6-10.4)
[2017-06-25 14:39] LABS: T4 8.94 ug/dL (5.5-11.0)
[2017-06-25 14:52] LABS: CORTISOL AM 20.2 ug/dL (4.46-22.7)
--- NOTE | 2017-06-25 15:17 | CP.PCM.PN ---
Subjective - Date & Time of Evaluation Date of Evaluation: 06/25/17 Time of Evaluation: 08:20 - Subjective Subjective: clinically same Objective - Vital Signs/Intake and Output Vital Signs (last 24 hours): Temp Pulse Resp BP Pulse Ox 98.0 F 75 20 126/77 96 06/25/17 08:15 06/25/17 08:15 06/25/17 08:15 06/25/17 08:15 06/25/17 08:15 Intake and Output: 06/25/17 06/25/17 06:59 18:59 Intake Total 570 440 Balance 570 440 - Medications Medications: Current Medications Enoxaparin Sodium (Lovenox) 40 mg SC DAILY [facility] Last Admin: 06/25/17 10:07 Dose: 40 mg Ciprofloxacin (Cipro 400mg/200ml Dsw) 400 mg in 200 mls @ 133 mls/hr IVPB Q12H [facility] Last Admin: 06/25/17 10:49 Dose: 133 mls/hr Insulin Aspart (Novolog) 0 unit SC ACHS [facility] PRN Reason: Protocol Last Admin: 06/25/17 12:13 Dose: 2 unit Insulin Aspart (Novolog) 12 unit SC AC [facility] Insulin Glargine (Lantus) 28 unit SC HS [facility] Lisinopril (Zestril) 10 mg PO DAILY [facility] Last Admin: 06/25/17 10:07 Dose: 10 mg Methimazole (Tapazole) 5 mg PO BID [facility] Last Admin: 06/25/17 10:50 Dose: 5 mg Ondansetron HCl (Zofran Inj) 4 mg IVP Q4H PRN PRN Reason: Nausea/Vomiting Last Admin: 06/24/17 08:25 Dose: 4 mg Pantoprazole Sodium (Protonix Inj) 40 mg IVP DAILY [facility] Last Admin: 06/25/17 10:07 Dose: 40 mg - Labs Labs: 06/25/17 14:03 06/25/17 14:03 - Constitutional Appears: Well - Head Exam Head Exam: ATRAUMATIC, NORMAL INSPECTION, NORMOCEPHALIC - Eye Exam Eye Exam: EOMI, Normal appearance, PERRL Pupil Exam: NORMAL ACCOMODATION, PERRL - ENT Exam ENT Exam: Mucous Membranes Moist, Normal Exam - Neck Exam Neck Exam: Full ROM, Normal Inspection. absent: Lymphadenopathy - Respiratory Exam Respiratory Exam: Decreased Breath Sounds - Cardiovascular Exam Cardiovascular Exam: REGULAR RHYTHM, +S1, +S2 - GI/Abdominal Exam GI & Abdominal Exam: Soft, Diminished Bowel Sounds - Rectal Exam Rectal Exam: Deferred Assessment and Plan (1) DKA (diabetic ketoacidoses) Status: Acute (2) Vomiting Status: Acute
--- NOTE | 2017-06-25 15:25 | PN ---
This is a 57-year-old female with recent uncontrolled type 2 insulin requiring diabetes previously on oral hypoglycemic therapy presenting here with marked hyperglycemic accelerations and associated diabetic ketoacidosis and dehydration and has received appropriate medical therapy with intensive insulin therapy using an insulin drip infusion for over 48 hours and also vigorous IV hydration as given. She has seen then been transferred out of the ICU to the regular floor and is being followed closely now for endocrine evaluation and management. Moreover, she also had an incidental finding of a multinodular goiter, which has been evaluated to be quite and enlarged moderate thyromegaly within the right lobe measuring 6.9 x 2.9 x 2.8 cm on the left lobe measuring 5.9 x 2.0 x 2.2 cm with the large 4.0 x 3.3 dominant cystic nodule in the right lobe as mentioned. She denies any overt compressive or neck obstructive symptoms at this time. She is clinically euthyroid and biochemically has evidence of the focal subclinical and early hyperthyroidism related to the underlying toxic multinodular goiter. She has been started on Tapazole given as 5 mg b.i.d. as tolerated fairly well at this time and for now would recommend the same medical therapy, if there are any plans for discharge the next day or so. We would eventually need a fine needle aspiration biopsy of the right thyroid nodule, either here or electively to ascertain the exact nature of the nodule. Her latest chemistry shows a BUN of 17, sodium 136, potassium 3.4, chloride 96, CO2 is 25, glucose 178 and creatinine 0.8. Her glucose values have ranged from 242 to 278 and 311 mg/dL. Her thyroid studies showed that T4 of 9.22 with the TSH of 0.11. So at this time, we will modify her basal and bolus insulin regimen and increase the Lantus to 28 unit subcu at bedtime daily to start tonight. We will also increase the NovoLog to 12 units subcu t.i.d. before meals dinner time today as ordered. We will titrate incremental as indicated to optimize metabolic control. We will also obtain thyroid studies and titrate a dose regimen accordingly. We will also initiate diabetic education and dietary instructions at the time of this admission and also to include insulin self-administration and she was never on insulin until this present admission. We will follow up with you. Delfina Baumann MD [facility] # [id number]
[2017-06-25] MEDS ORDERED: (Novolog) Insulin Aspart, Recombinant 100 u/ml 10 ml vial SC SCH (16:30)
--- NOTE | 2017-06-25 17:43 | CP.PCM.PN ---
Subjective - Date & Time of Evaluation Date of Evaluation: 06/25/17 Time of Evaluation: 17:34 - Subjective Subjective: 57 Y/O FEMALE SEEN AND EXAMINED TODAY BY DR Flory NAGEL, DENIES ANY ABDOMINAL PAIN, N/V/D OR SOB. Objective - Vital Signs/Intake and Output Vital Signs (last 24 hours): Temp Pulse Resp BP Pulse Ox 98.7 F 90 20 140/78 98 06/25/17 16:00 06/25/17 16:00 06/25/17 16:00 06/25/17 16:00 06/25/17 16:00 Intake and Output: 06/25/17 06/25/17 06:59 18:59 Intake Total 570 440 Balance 570 440 - Medications Medications: Current Medications Enoxaparin Sodium (Lovenox) 40 mg SC DAILY [facility] Last Admin: 06/25/17 10:07 Dose: 40 mg Ciprofloxacin (Cipro 400mg/200ml Dsw) 400 mg in 200 mls @ 133 mls/hr IVPB Q12H [facility] Last Admin: 06/25/17 10:49 Dose: 133 mls/hr Insulin Aspart (Novolog) 0 unit SC ACHS [facility] PRN Reason: Protocol Last Admin: 06/25/17 17:10 Dose: Not Given Insulin Aspart (Novolog) 12 unit SC AC [facility] Last Admin: 06/25/17 17:10 Dose: 12 unit Insulin Glargine (Lantus) 28 unit SC HS [facility] Lisinopril (Zestril) 10 mg PO DAILY [facility] Last Admin: 06/25/17 10:07 Dose: 10 mg Methimazole (Tapazole) 5 mg PO BID [facility] Last Admin: 06/25/17 10:50 Dose: 5 mg Ondansetron HCl (Zofran Inj) 4 mg IVP Q4H PRN PRN Reason: Nausea/Vomiting Last Admin: 06/24/17 08:25 Dose: 4 mg Pantoprazole Sodium (Protonix Inj) 40 mg IVP DAILY [facility] Last Admin: 06/25/17 10:07 Dose: 40 mg - Labs Labs: 06/25/17 14:03 06/25/17 14:03 Assessment and Plan - Assessment and Plan (Free Text) Plan: 57 Y/O FEMALE WITH PMHX UNCONTROLLED DM II ADMITTED FOR NAUSEA, VOMIITNG, DKA, DEHYDRATION TREATED WITH IVF, INSULIN PER DR UNDERWOOD THYROID US- 4X3.3X4.4 CM NODULE RIGHT THYROID, 2 SOLID NODULE LEFT LOBE PT REFUSED BIOPSY AT PRESENT PER DR UNDERWOOD PT NEEDS OUTPT FINE NEEDLE ASPIRATION BIOPSY OF THE RIGHT THYROID NODULE DIABETIC NURSE EDUCATOR CONSULT RX FOR INSULIN, TAPAZOLE PT MADE AWARE OF POC, AGREE, VERBALIZE UNDERSTANDING
[2017-06-25] MEDS ORDERED: (Lantus) Insulin Glargine, Recombinant SC SCH (22:00)
[2017-06-26 07:57] LABS: ALBUMIN 2.8 g/dL (3.5-5.0)
[2017-06-26 08:00] LABS: ALB/GLOB RATIO 0.8 (1.0-2.1); AST/SGOT 25 U/L (14-36); GFR AFRICAN-AMERICAN > 60; GFR NON-AFRICAN AMERICAN 57
[2017-06-26 08:01] LABS: ALT/SGPT 27 U/L (9-52); BLOOD UREA NITROGEN 19 mg/dL (7-17); CALCIUM 8.2 mg/dl (8.6-10.4)
[2017-06-26 08:21] LABS: T4 8.53 ug/dL (5.5-11.0)
[2017-06-26] MEDS: (Novolog) Insulin Aspart, Recombinant 100 u/ml 10 ml vial SC SCH ×6 (08:26→17:06)
[2017-06-26] MEDS: methIMAzole 5 MG TAB PO SCH ×2 (11:13→17:03)
[2017-06-26] MEDS: Ciprofloxacin 400mg/200ml D5W 400 MG/200 ML BAG IVPB SCH (11:13)
[2017-06-26] MEDS: Enoxaparin 40 mg Syringe SC SCH (11:14)
--- NOTE | 2017-06-26 13:27 | PN ---
In room 361. SUBJECTIVE: This is a 57-year-old female with recent uncontrolled type 2 insulin-requiring diabetes, presenting here with diabetic ketoacidosis and dehydration, and the symptoms improved clinically and metabolically with intensive insulin therapy, and vigorous IV hydration as given. She is tolerating the basal and bolus insulin regimen as given. Moreover she also had an incidentally findings of toxic multinodular goiter with subclinical hypothyroidism as noted. She is also tolerating the Tapazole given 5 mg b.i.d after meals as given. LABORATORY DATA: Her latest chemistry showed a BUN of 19, sodium 135, potassium 3.5, chloride 95, CO2 of 26, glucose 214, creatinine 1.0. Her glucose level have ranged from 106 to 235 mg/dL. Her thyroid study showed a T4 of 8.53 with the TSH of 0.35 which is still slightly suppressed because it improved remarkably since admission. RECOMMENDATIONS: Recommendation for discharge today would highly recommend the same Tapazole given at the low dose 5 mg b.i.d. after meals as ordered. We will also continue the modify basal and bolus insulin regimen with Lantus given 24 units subq at bedtime daily as ordered. We will also continue the NovoLog given as 8 units subq t.i.d before meals as given. We will titrate as indicated to optimize metabolic control. We will obtain serial chemistries and supplement accordingly as needed. She is also undergoing diabetic education today with itching for insulin self-administration as noted. She will follow with her medical doctor Dr. Tierra Angel as an outpatient medical follow and management, but with highly recommend also a digital strategy specialist comes by to her home who can follow her for the endocrine issues as mentioned. We will follow her and advice accordingly. Delfina Baumann MD
[2017-06-26 16:07] LABS: THYROGLOBULIN 83.3 ng/mL (2.8-40.9)
--- NOTE | 2017-06-26 16:28 | CP.PCM.PN ---
Subjective - Date & Time of Evaluation Date of Evaluation: 06/26/17 Time of Evaluation: 08:00 - Subjective Subjective: Clinically same Objective - Vital Signs/Intake and Output Vital Signs (last 24 hours): Temp Pulse Resp BP Pulse Ox 97.9 F 74 20 129/77 100 06/26/17 07:54 06/26/17 07:54 06/26/17 07:54 06/26/17 07:54 06/26/17 07:54 Intake and Output: 06/26/17 06/26/17 06:59 18:59 Intake Total 740 360 Balance 740 360 - Medications Medications: Current Medications Enoxaparin Sodium (Lovenox) 40 mg SC DAILY [facility] Last Admin: 06/26/17 11:14 Dose: 40 mg Ciprofloxacin (Cipro 400mg/200ml Dsw) 400 mg in 200 mls @ 133 mls/hr IVPB Q12H [facility] Last Admin: 06/26/17 11:13 Dose: Not Given Insulin Aspart (Novolog) 0 unit SC ACHS [facility] PRN Reason: Protocol Last Admin: 06/26/17 12:28 Dose: Not Given Insulin Aspart (Novolog) 8 unit SC AC [facility] Last Admin: 06/26/17 12:40 Dose: 8 unit Insulin Glargine (Lantus) 24 unit SC HS [facility] Lisinopril (Zestril) 10 mg PO DAILY [facility] Last Admin: 06/26/17 11:13 Dose: 10 mg Methimazole (Tapazole) 5 mg PO BID [facility] Last Admin: 06/26/17 11:13 Dose: 5 mg Ondansetron HCl (Zofran Inj) 4 mg IVP Q4H PRN PRN Reason: Nausea/Vomiting Last Admin: 06/24/17 08:25 Dose: 4 mg Pantoprazole Sodium (Protonix Inj) 40 mg IVP DAILY [facility] Last Admin: 06/26/17 11:13 Dose: 40 mg - Labs Labs: 06/25/17 14:03 06/26/17 07:15 - Constitutional Appears: Well - Head Exam Head Exam: ATRAUMATIC, NORMAL INSPECTION, NORMOCEPHALIC - Eye Exam Eye Exam: EOMI, Normal appearance, PERRL Pupil Exam: NORMAL ACCOMODATION, PERRL - ENT Exam ENT Exam: Mucous Membranes Moist, Normal Exam - Neck Exam Neck Exam: Full ROM, Normal Inspection. absent: Lymphadenopathy - Respiratory Exam Respiratory Exam: Decreased Breath Sounds - Cardiovascular Exam Cardiovascular Exam: REGULAR RHYTHM, +S1, +S2 - GI/Abdominal Exam GI & Abdominal Exam: Soft, Diminished Bowel Sounds - Rectal Exam Rectal Exam: Deferred Assessment and Plan (1) DKA (diabetic ketoacidoses) Status: Acute (2) Vomiting Status: Acute
[2017-06-26 17:01] VITALS: BP 128/80; PULSE 89; TEMP 98.4; O2SAT 99
[2017-06-26] MEDS ORDERED: (Lantus) Insulin Glargine, Recombinant SC SCH (22:00)
[2017-06-28 18:59] LABS: TSI <89 % baseline (<140)
== END 2017-06-26 19:25 | disposition home or self-care (01) | DRG 639 ==
LOC: C.ER 13:54 → C.9I 17:45 → C.3T 06-25 05:40
PROVIDERS: ADMIT Internal Medicine Nephrology; ATTEND Internal Medicine Nephrology
DX: E13.10 Other specified diabetes mellitus with ketoacidosis without coma (principal); I10 Essential (primary) hypertension; E86.0 Dehydration; E78.5 Hyperlipidemia, unspecified; E04.2 Nontoxic multinodular goiter; Z79.4 Long term (current) use of insulin

== ENCOUNTER 2017-08-25 08:45 | Day surgery (SDC) | payer OTHER ==
--- NOTE | 2017-08-25 11:28 | CP.SDSHP ---
Same Day Surgery H & P - History Proposed Procedure: US guided FNA of right thyroid mass Pre-Op Diagnosis: right thyroid mass - Allergies Allergies: Allergies No Known Allergies Allergy (Verified 06/20/17 14:51) - Physical Exam Vital Signs: Vital Signs 08/25/17 09:21 Temperature 97.4 F L Pulse Rate 83 Respiratory 20 Rate Blood Pressure 124/85 O2 Sat by Pulse 100 Oximetry Mental Status: Alert & Oriented x3 Neuro: WNL Heart: WNL Lungs: WNL - Impression Impression: Pt with a complex cystic right thyroid mass. Plan US guided FNA. Pt. Evaluated Today:Candidate for Anesthesia & Procedure: No Short Stay Discharge - Short Stay Discharge Admitting Diagnosis/Reason for Visit: NODULAT GOITER//HYPERTHYROIDISM
--- NOTE | 2017-08-25 11:29 | PCM.SURG1 ---
Surgeon's Initial Post Op Note - Surgeon's Notes Surgeon: Wilian Gómez MD Hand Inserter Operator: NOne Type of Anesthesia: Local Pre-Operative Diagnosis: right thyroid mass Operative Findings: COmplex cystic 3 cm right parotid mass. Post-Operative Diagnosis: right thyroid mass Operation Performed: US guided FNA of right thyroid mass Specimen/Specimens Removed: 25 g FNA x 4 passes Estimated Blood Loss: EBL {In ML}: 0 Blood Products Given: N/A Drains Used: No Drains Post-Op Condition: Good Date of Surgery/Procedure: 08/25/17 Time of Surgery/Procedure: 20:00
[2017-08-25 12:11] VITALS: PULSE 84; RESP 16; TEMP 97.9
[2017-08-25 12:13] VITALS: BP 112/67; O2SAT 95
--- NOTE | 2017-08-26 15:29 | US ---
PROCEDURE: Date of Procedure: 08/25/2017 PROCEDURE: 1. Ultrasound guided FNA of right thyroid nodule, CPT 84567 2. Ultrasound guidance for FNA, [id number] Medications: 4cc 1% Lidocaine HISTORY: Enlarged right thyroid nodule. TECHNIQUE: Following informed consent and procedure time-out, a limited ultrasound patient's neck confirmed the presence of a 3.8 cm complex thyroid nodule which is predominantly cystic. After the patient's neck was prepped and draped in the usual sterile fashion, the skin was anesthetized with 1% lidocaine. Ultrasound-guided fine needle aspiration was then performed of the dominant right thyroid nodule. A total of 4 passes were made into the nodule with 25 gauge needle under ultrasound guidance. The FNA specimen was sent for routine pathology. Post biopsy ultrasound showed no hematoma. IMPRESSION: Ultrasound-guided FNA of the dominant right thyroid nodule.
== END 2017-08-25 12:10 | disposition home or self-care (01) ==
LOC: C.SPRAD 08:45
PROVIDERS: ATTEND Radiology Vascular & Interventional Radiology
DX: E04.1 Nontoxic single thyroid nodule (principal)